=== PATIENT | male | born 1995 | race Caucasian/White ===

== ENCOUNTER 2021-09-12 12:49 | Emergency (ER) | payer MEDICAID, SELFPAY ==
--- NOTE | 2021-09-12 12:45 | RT.EKG_ITS ---
APPROVED REPORT Exam: Resting ECG Reason for Exam: chest pain Patient Location: E HR:71 bpm ECG Measurements Heart Rate 71 AXIS WI 175 P 59 QRSd 90 QRS 82 QT 349 T 41 QTc 379 Conclusion Sinus rhythm...normal P axis, V-rate 60- 99 ST elevation suggests acute pericarditis...ST >0.10mV, ant/lat/inf
[2021-09-12 12:56] VITALS: BP 134/81; PULSE 81; RESP 16; TEMP 36.9; O2SAT 97
--- NOTE | 2021-09-12 13:15 | DI.RAD_ITS ---
Exam(s) XR PORTABLE CHEST AP EXAM: XR PORTABLE CHEST AP CLINICAL HISTORY: PUI, Cough. TECHNIQUE: 2D digital imaging was performed. COMPARISON: CR ABD FLAT UPRIGHT PA CHEST from 06/04/2014 FINDINGS: Single AP portable view. Heart size is upper normal. The mediastinum is not widened. Lungs are clear. No infiltrates nor obvious pleural effusions. IMPRESSION: No acute pulmonary findings on this single AP portable view of the chest. DATA REPOSITORY: RADIATION DOSE DELIVERED: All CT scans at this facility use at least one of these dose optimization techniques: automated exposure control; mA and/or kV adjustment per patient size (includes targeted e xams where dose is matched to clinical indication); or iterative reconstruction.
--- NOTE | 2021-09-12 13:19 | ED.GENADUL_ITS ---
Discharge Plan Disposition Patient Disposition: HOME Condition: Improving Discharge Details Clinical Impression: Bronchitis Primary Care Provider: Unknown,Unknown ED Provider: Chris Duarte Home Meds and New Rx's Prescriptions: New amoxicillin-pot clavulanate 875-125 mg tablet 1 tab PO BID 10 Days Qty: 20 0RF ibuprofen 800 mg tablet 800 mg PO Q8H PRN (Reason: pain) Qty: 20 0RF Discharge Instructions Instructions: Acute Bronchitis (ED) Additional Instructions: Home to rest today. Small, frequent sips of fluids to maintain hydration. Ibuprofen 2-3 times per day will help attenuate aches and pains. Return if you develop shortness of breath or any other acute Take antibiotics as prescribed until finished. Our care managers will arrange a follow-up for you to establish care at the [place] [facility]. Stand Alone Forms: PENDING COVID-19 TESTING, Work Release Medical Decision Making This is an otherwise healthy 25-year-old male, occasional smoker, who lives in the town of [place]. He presents with 3 weeks of upper respiratory illness. Dry cough, production of sputum, postnasal drip. States he tried a nasal inhaler with minimal improvement. States he did have 1 at home negative COVID test but also had positive COVID exposures to his family. He arrives to the ER pleasant and alert with normal vital signs. As part of his screening triage an EKG was changed which does show diffuse ST segment elevation/WV depression, concerning for pericarditis. As such the differential diagnosis was broadened and the patient underwent viral testing, screening blood work, chest x-ray. Laboratories are reassuring; white count 8, hematocrit 43, platelets 229. Normal chemistries. CRP of 0.48 and troponin that is negative. Chest x-ray without infiltrate. No evidence of significant pericarditis by labs and no evidence of cardiomegaly on chest x-ray. Patient likely does have some component of bronchitis and sinusitis. He may need also end up having a positive COVID test. Discussed with him a trial of antibiotics. We will continue anti-inflammatories for consideration of mild pericardial irritation Lab Data Lab results reviewed: Yes I reviewed the patient's lab results. Labs: Laboratory Results - last 24 hr 09/12/21 09/12/21 09/12/21 13:30 13:30 16:18 WBC 8.59 RBC 4.84 Hgb 14.5 Hct 43.5 MCV 90 MCH 30.0 MCHC 33.3 RDW 12.3 Plt Count 229 MPV 10.2 Immature Gran % 0.3 Neutrophils % 69.1 Lymphocytes % 17.9 Monocytes % 10.2 Eosinophils % 2.0 Basophils % 0.5 Nucleated RBC % 0.0 Absolute Neutrophils 5.93 Absolute Lymphocytes 1.54 Absolute Monocytes 0.88 H Absolute Eosinophils 0.17 Absolute Basophils 0.04 Sodium 136 Potassium 4.1 Chloride 101 Carbon Dioxide 29.3 Anion Gap 5.7 BUN 13 Creatinine 0.9 Estimated GFR/1.73 m2 >= 60.00 Glucose 96 Calcium 8.6 Total Bilirubin 0.8 AST 23 ALT 37 Alkaline Phosphatase 64 Creatine Kinase 76 Troponin I < 50 Cancelled C-Reactive Protein 0.48 H Total Protein 7.4 Albumin 4.1 HPI General Mode of arrival: ambulatory . Date/Time Provider Initiated Documentation: 09/12/21 12:50 . Limitations to Documentation: no limitations . Information obtained by: patient . History of Present Illness 25 year old M presents to the emergency department with the chief complaint of 3 weeks of upper respiratory illness to the 1, Quality is described as dull, and is localized to the chest. Patient reports no radiation. Patient started experiencing this day(s) and it has been intermittent. improves with No relieving factors improve symptom(s), No exacerbating factors reported . Patient notes chest pain, cough, fever/chills and headaches. Patient did receive the following treatments prior to arrival, none Related Data Home Medications Medication Instructions Recorded Confirmed amoxicillin 875 mg-potassium 1 tab PO BID 10 Days #20 tab 09/12/21 clavulanate 125 mg tablet ibuprofen 800 mg tablet 800 mg PO Q8H PRN #20 tab 09/12/21 Previous Rx's Medication Instructions Recorded amoxicillin 875 mg-potassium 1 tab PO BID 10 Days #20 tab 09/12/21 clavulanate 125 mg tablet ibuprofen 800 mg tablet 800 mg PO Q8H PRN #20 tab 09/12/21 Allergies Allergy/AdvReac Type Severity Reaction Status Date / Time dial soap Allergy Mild Skin Rash Uncoded 09/12/21 13:02 General Stated Complaint: RespSymp EHSAN: 4 Review of Systems Narrative: 8 systems reviewed and otherwise negative PFSH All Active Problems (Updated 09/12/21 @ 14:12 by Chris Duarte MD) Bronchitis (Acute) Medical History Autosomal dominant polycystic kidney disease Social History Smoking/Tobacco Use Status: Current every day Tobacco Type: cigarettes Smoking risk assessment performed?: Yes Alcohol Intake: never Drug use: Daily Substance use type: marijuana Exam Narrative Exam Narrative: GEN: awake, alert, oriented 3. Pleasant, well groomed, interactive. HEAD: Normocephalic, atraumatic ENT: Mucous membranes moist, oropharynx unremarkable, External ear exam unrem arkable EYES: PERRL, EOMI NECK: Full ROM, no DAVID, no menigismus CHEST/RESP: Nontender, clear to auscultation bilateral, no wheeze/rhonchi/rales CARDIOVASCULAR: RRR, no murmur, rub rachael. 2+ Rad pulse bilateral ABDOMEN: Soft, nontender, no mass. +Bowel sounds EXT: Full ROM, no edema, no rash Neuro: Grossly normal neurologic exam, conversant, interactive. Psych: Speech fluent, thoughts congruent, affect normal Course Vital Signs Vital signs: Vital Signs Temperature 36.9 C 09/12/21 12:56 Pulse 81 09/12/21 12:56 Respiratory Rate 16 09/12/21 12:56 Blood Pressure 134/81 09/12/21 12:56 Pulse Oximetry 97 09/12/21 12:56 Temperature 36.9 C 09/12/21 12:56 Temperature Source Oral 09/12/21 12:56 Pulse 81 09/12/21 12:56 Respiratory Rate 16 09/12/21 12:56 Respiratory Effort 09/12/21 13:03 Blood Pressure 134/81 09/12/21 12:56 Blood Pressure Position Sitting 09/12/21 12:56 Pulse Oximetry 97 09/12/21 12:56 Oxygen Delivery Method Room Air 09/12/21 12:56 Oxygen Flow Rate 0 09/12/21 12:56 Pain Level 2 09/12/21 12:56
[2021-09-12 13:34] LABS: Abs Immature Grans 0.03 10^3/uL (0.0-0.06); Absolute Basophil Count 0.04 10^3/uL (0.0-0.2); Absolute Eosinophil Count 0.17 10^3/uL (0.0-0.7); Absolute Lymphocyte Count 1.54 10^3/uL (1.2-3.4); Absolute Monocyte Count 0.88 10^3/uL (0.1-0.8); Absolute Neutrophil Count 5.93 10^3/uL (1.2-6.7); Basophils % 0.5; HCT 43.5 % (40.0-50.0); HGB 14.5 g/dL (13.5-17.5); Immature Grans % 0.3; Lymphocytes % 17.9; MCHC 33.3 % (32.0-36.0); MCV 90 fL (80-95); MPV 10.2 fL (8.0-11.0); Monocytes % 10.2; Neutrophils % 69.1; Platelet Count 229 10^3/uL (130-400); RBC 4.84 10^6/uL (4.36-5.78); RDW 12.3 % (11.8-14.1); RDW-SD 40.9 fL; WBC 8.59 10^3/uL (4.4-10.8)
[2021-09-12] MEDS: Ketorolac 10 MG TAB PO (13:41)
[2021-09-12] MEDS: guaiFENesin/D-METHORPHAN HB 5 ML CUP 10 ML PO (13:41)
[2021-09-12 13:49] LABS: ALT 37 U/L (16-63); AST 23 U/L (15-37); Albumin 4.1 g/dL (3.4-5.0); Alkaline Phosphatase 64 U/L (46-116); Anion Gap 5.7 mmol/L (3-11); BUN 13 mg/dL (7-18); Bilirubin, Total 0.8 mg/dL (0.2-1.0); C-Reactive Protein 0.48 mg/dL (0.0-0.3); CO2 29.3 mmol/L (21.0-32.0); CREATININE 0.9 mg/dL (0.70-1.30); Calcium 8.6 mg/dL (8.5-10.1); Chloride 101 mmol/L (98-107); Creatine Kinase 76 U/L (39-308); Glucose 96 mg/dL (74-106); Potassium 4.1 mmol/L (3.5-5.1); Sodium 136 mmol/L (136-145); Total Protein 7.4 g/dL (6.4-8.2); Troponin I < 50 ng/L (<or=60)
--- NOTE | 2021-09-12 13:54 | NUR.NOTE ---
Referral given to Care Management to establish care, URI, needs PCP, preferably in [place], with routine follow up. Rosalina Mendoza
[2021-09-12 14:44] LABS: COVID-19 PCR Negative (Negative); Influenza A PCR Negative (Negative); Influenza B PCR Negative (Negative); RSV PCR Negative (Negative)
[2021-09-12 14:47] LABS: Source Nasopharynx
== END 2021-09-12 14:25 | disposition home or self-care (01) ==
PROVIDERS: Emergency Provider Emergency Medicine
DX: J20.9 Acute bronchitis, unspecified (principal); Z20.822 Contact with and (suspected) exposure to COVID-19
CPT/HCPCS: 36415; 80053; 82550; 87637; 93005; 99284; 71045; 84484; 85025; 86140; 93010

== ENCOUNTER 2022-03-27 09:09 | Emergency (ER) | payer MEDICAID, SELFPAY ==
[2022-03-27 09:27] VITALS: BP 143/94; PULSE 66; RESP 16; TEMP 36.6; O2SAT 97
[2022-03-27 09:59] VITALS: RESP 18
[2022-03-27 11:07] LABS: COVID-19 PCR Negative (Negative); Influenza A PCR Negative (Negative); Influenza B PCR Negative (Negative); RSV PCR Negative (Negative)
[2022-03-27 11:09] LABS: Source Nasopharynx
--- NOTE | 2022-03-27 14:50 | W.ED.GENAD ---
Discharge Plan Disposition Patient Disposition: Home Condition: Stable Discharge Details Clinical Impression: Viral upper respiratory infection [facility] Provider: Katherine Gale Home Meds and New Rx's Prescriptions: New mometasone 50 mcg/actuation spray,non-aerosol 2 spray intranasal DAILY Qty: 17 0RF Rx Instructions: administer into each nostril Continued ibuprofen 800 mg tablet 800 mg PO Q8H PRN (Reason: pain) Qty: 20 0RF Discharge Instructions Instructions: Upper Respiratory Infection (ED) Additional Instructions: you have a viral upper respiratory infection use mometasone as prescribed regular fluids i will call if your viral panel is positive return earlier with new or worsening complaints Discharge Data Discharge Date/Time-TO BE ENTERED AT DEPARTURE: 03/27/22 10:16 Medical Decision Making Patient appears well, he is negative for flu, COVID, and RSV I suspect he has upper respiratory infection Encouraged to refrain visiting his premature nanny until he is asymptomatic Do not see any evidence of bacterial etiology of patient's symptoms at this time Will give Nasacort for comfort Return precautions discussed and patient expressed understanding Medical Records Medical records reviewed: Yes I reviewed the patient's medical records. Sign Out No HPI General Date/Time Provider Initiated Documentation: 03/27/22 09:10. HPI Narrative: This 26-year-old male presents emergency department with productive cough, sore throat, tiredness for the past 3 weeks. He states he has been around close contacts were sick with similar symptoms. His largest concern is that he has a premature that is at [facility] and he does not want to expose the to infection. He denies any fevers at home. He is otherwise reportedly healthy. He has not taken any [id number] medications for patient. Related Data Home Medications Medication Instructions Recorded Confirmed ibuprofen 800 mg tablet 800 mg PO Q8H PRN pain #20 tabs 09/12/21 mometasone 50 mcg/actuation nasal 2 spray intranasal DAILY #17 grams 03/27/22 spray Previous Rx's Medication Instructions Recorded ibuprofen 800 mg tablet 800 mg PO Q8H PRN pain #20 tabs 09/12/21 mometasone 50 mcg/actuation nasal 2 spray intranasal DAILY #17 grams 03/27/22 spray Allergies Allergy/AdvReac Type Severity Reaction Status Date / Time dial soap Allergy Mild Skin Rash Uncoded 09/12/21 13:02 General Stated Complaint: GenMedical EHSAN: 4 Review of Systems All systems reviewed & are unremarkable except as noted in HPI and below PFSH All Active Problems (Updated 03/27/22 @ 09:54 by DEJAN Perez) Viral upper respiratory infection (Acute) Medical History Autosomal dominant polycystic kidney disease Social History Smoking/Tobacco Use Status: Current every day Tobacco Type: cigarettes Smoking risk assessment performed?: Yes Alcohol Intake: never Drug use: Daily Substance use type: marijuana Exam Const General: cooperative, comfortable and no acute distress Orientation: alert and oriented x3 HENMT Head: normal to inspection Mouth: oral mucosae normal Other: no maxillary tenderness Eyes Pupils: PERRL Resp Effort & Inspection: normal respiratory effort Auscultation: clear to auscultation bilaterally Cardio Rate: regular rate Rhythm: regular rhythm Skin General skin exam: no rashes or lesions noted Course Vital Signs Vital signs: Vital Signs Temperature 36.6 C 03/27/22 09:27 Pulse 66 03/27/22 09:27 Respiratory Rate 16 03/27/22 09:27 Blood Pressure 143/94 H 03/27/22 09:27 Pulse Oximetry 97 03/27/22 09:27 Temperature 36.6 C 03/27/22 09:27 Temperature Source Oral 03/27/22 09:27 Pulse 66 03/27/22 09:27 Respiratory Rate 18 03/27/22 09:59 Respiratory Effort Non-Labored 03/27/22 09:59 Respiratory Depth Normal 03/27/22 09:59 Respiratory Pattern Normal 03/27/22 09:59 Blood Pressure 143/94 H 03/27/22 09:27 Blood Pressure Position Sitting 03/27/22 09:27 Pulse Oximetry 97 03/27/22 09:27 Oxygen Delivery Method Room Air 03/27/22 09:27 Oxygen Flow Rate 0 03/27/22 09:27 Pain Level 5 03/27/22 09:27 Lab/Test Results Lab/Test Results: Laboratory Tests Range/Units 03/27/22 10:12 COVID-19 Source Nasopharynx SARS-CoV-2 (PCR) (Negative) Negative Influenza Type A (PCR) (Negative) Negative Influenza Type B (PCR) (Negative) Negative RSV (PCR) (Negative) Negative
== END 2022-03-27 10:16 | disposition home or self-care (01) ==
PROVIDERS: Emergency Provider Physician Assistant
DX: J06.9 Acute upper respiratory infection, unspecified (principal)
CPT/HCPCS: 87637; 99283

== ENCOUNTER 2022-12-21 08:49 | Emergency (ER) | payer MEDICAID, SELFPAY ==
[2022-12-21 09:05] VITALS: BP 127/88; PULSE 73; RESP 16; TEMP 36.8; O2SAT 99
[2022-12-21] MEDS: Normal Saline 1,000 ML 1000 ML IV ×2 (09:37→10:40)
[2022-12-21] MEDS: Ondansetron 4 MG/2 ML VIAL IVP (09:37)
--- NOTE | 2022-12-21 09:45 | W.ED.GENAD ---
Discharge Plan Disposition Patient Disposition: Home Discharge Details Clinical Impression: Alcohol intoxication in episodic drinker, Nausea & vomiting Primary Care Provider: Unknown,Unknown ED Provider: Darien Ashton Home Meds and New Rx's Prescriptions: Continued ibuprofen 800 mg tablet 800 mg PO Q8H PRN (Reason: pain) Qty: 20 0RF mometasone 50 mcg/actuation spray,non-aerosol 2 spray intranasal DAILY Qty: 17 0RF Rx Instructions: administer into each nostril Discharge Instructions Instructions: Alcohol Intoxication (ED), Acute Nausea and Vomiting (ED) Additional Instructions: Please stay well-hydrated and slowly increase your diet as tolerated. Your symptoms are secondary to the excessive amount of alcohol intake and it is advised that you follow safe alcohol consumption to minimize side effects. Follow-up with your primary care provider as needed for reassessment Referrals: Primary Care Provider [Outside] Discharge Data Discharge Date/Time-TO BE ENTERED AT DEPARTURE: 12/21/22 16:44 Medical Decision Making Patient presenting to the emergency department for chief complaint of nausea vomiting. Patient reports that last night he was drinking and drank excessively. Around 5 AM this morning he woke up and started having persistent vomiting. He reports that he has been having some hand cramping and spasms and overall does not feel well. Patient denies daily daily alcohol use. Physical exam shows a stable patient that is actively retching, no focal abdominal tenderness, no CVA tenderness, patient is not tachycardic or hypoxic. Given significant amount of vomiting reported by patient we will check patient's labs for any electrolyte abnormalities but I suspect this is more due to excessive alcohol intake. Will give patient a bag of IV fluids and Zofran pending results. Reviewed patient's labs and does have significant leukocytosis which I feel is from vomiting, CMP does show hypokalemia, low carbon dioxide high anion gap and high BUN. Bilirubin is slightly elevated at 1.1 AST is up at 50. Patient is still having some alcohol in his system with an alcohol level of 28. Urinalysis does show ketones and high specific gravity. Labs are otherwise nondiagnostic. Will give patient additional liter of fluids and p.o. potassium. Patient was able to tolerate some p.o. intake so we will discharge patient home. After discussion of diagnosis and plan of care patient has no further needs, questions, or concerns and states clear understanding to return to the emergency department for any worsening symptoms. This documentation was generated using [employer] dictation system, please disregard any oddities of phrase or misspellings. Lab Data Lab results reviewed: Yes I reviewed the patient's lab results. HPI General Mode of arrival: ambulatory. Date/Time Provider Initiated Documentation: 12/21/22 08:49. Limitations to Documentation: no limitations. Information obtained by: patient and RN notes reviewed. History of Present Illness 27 year old M presents to the emergency department with the chief complaint of Nausea vomiting, described as severe, Patient started experiencing this hour(s) (4) and it has been constant. No relieving factors improve symptom(s), Other factors that worsen symptoms (Excessive alcohol intake yesterday evening) . Patient did receive the following treatments prior to arrival, none Related Data Home Medications Medication Instructions Recorded Confirmed ibuprofen 800 mg tablet 800 mg PO Q8H PRN pain #20 tabs 09/12/21 mometasone 50 mcg/actuation nasal 2 spray intranasal DAILY #17 grams 03/27/22 spray Previous Rx's Medication Instructions Recorded ibuprofen 800 mg tablet 800 mg PO Q8H PRN pain #20 tabs 09/12/21 mometasone 50 mcg/actuation nasal 2 spray intranasal DAILY #17 grams 03/27/22 spray Allergies Allergy/AdvReac Type Severity Reaction Status Date / Time dial soap Allergy Mild Skin Rash Uncoded 09/12/21 13:02 General Stated Complaint: Nausea/Vomit/Diar EHSAN: 3 Review of Systems Constitutional Constitutional: Denies chills, Denies fever(s) and Reports poor appetite Cardiovascular Cardiovascular: Denies chest pain and Denies dyspnea Respiratory Respiratory: Denies cough and Denies dyspnea Gastrointestinal Gastrointestinal: Reports as per HPI, Denies abdominal pain, Denies melena, Denies change in bowel habits, Denies constipation, Denies diarrhea, Reports nausea and Reports vomiting Genitourinary Genitourinary: Denies hematuria, Denies difficulty urinating, Denies urinary hesitancy, Denies urinary incontinence and Denies urinary urgency Musculoskeletal Musculoskeletal: Reports muscle cramps Integumentary/Breasts Skin/Breast: Denies rash PFSH All Active Problems (Updated 12/21/22 @ 11:05 by Darien Ashton NP) Alcohol intoxication in episodic drinker (Acute) Nausea & vomiting (Acute) Autosomal dominant polycystic kidney disease (Acute 06/15/14) SEEN BY [facility] [place] IN 1 YEAR Medical History Autosomal dominant polycystic kidney disease Social History Smoking/Tobacco Use Status: Current every day Tobacco Type: cigarettes Smoking risk assessment performed?: Yes Alcohol Intake: never Drug use: Daily Substance use type: marijuana Do you feel safe at home: Yes Do you feel safe in your relationship?: Yes Exam Const General: cooperative Orientation: alert, awake and oriented x3 Resp Effort & Inspection: normal respiratory effort and able to speak in complete sentences Auscultation: clear to auscultation bilaterally Cardio Rate: regular rate Rhythm: regular rhythm Heart Sounds: S1 normal and S2 normal GI Palpation: soft, no hepatosplenomegaly, not firm, no guarding, no masses, no pulsatile masses, not rigid, no splenomegaly and nontender Auscultation: normal bowel sounds Back/Spine/Pelvis Back: no CVA tenderness Neuro General: patient alert, patient awake, patient oriented x3, gait normal and moves all extremities Course Vital Signs Vital signs: Vital Signs Temperature 36.8 C 12/21/22 09:05 Pulse 73 12/21/22 09:05 Respiratory Rate 16 12/21/22 09:05 Blood Pressure 127/88 12/21/22 09:05 Pulse Oximetry 99 12/21/22 09:05 Temperature 36.8 C 12/21/22 09:05 Temperature Source Oral 12/21/22 09:05 Pulse 73 12/21/22 09:05 Respiratory Rate 16 12/21/22 09:05 Respiratory Effort Normal, Non-Labored 12/21/22 09:11 Blood Pressure 127/88 12/21/22 09:05 Blood Pressure Position Sitting 12/21/22 09:05 Pulse Oximetry 99 12/21/22 09:05 Oxygen Delivery Method Room Air 12/21/22 09:05 Oxygen Flow Rate 0 12/21/22 09:05 PAWSS Have you Been Recently Intoxicated or Drunk Within the Last 30 days?: No Have you Ever Experienced Previous Episodes of Alcohol Withdrawal?: No Have you ever Experienced Withdrawal Seizures?: No Have you ever Experienced Delirium Tremens(DT)s?: No Have you ever undergone Alcohol Rehabilitation Treatment (i.e, inpt ot outpatient treatment programs)?: No Have you ever Experienced Blackouts?: No Have you ever Combined Alcohol with other Downers within the last 90 days?: No Have you ever Combined Alcohol with any other Substance of Abuse during the last 90 days?: No Positive Blood Alcohol level on Presentation? [PCS.BAL]: No Evidence of Increased Autonomic Activity (i.e. HR>120, tremor, sweating, agitation, nausea)?: No Result: 0
[2022-12-21 09:47] LABS: Abs Immature Grans 0.11 10^3/uL (0.0-0.06); Absolute Basophil Count 0.07 10^3/uL (0.0-0.2); Absolute Eosinophil Count 0.07 10^3/uL (0.0-0.7); Absolute Lymphocyte Count 1.94 10^3/uL (1.2-3.4); Absolute Monocyte Count 0.93 10^3/uL (0.1-0.8); Absolute Neutrophil Count 15.15 10^3/uL (1.2-6.7); Basophils % 0.4; Eosinophils % 0.4; HCT 42.4 % (40.0-50.0); Immature Grans % 0.6; Lymphocytes % 10.6; MCH 30.4 pg (27.0-33.0); MCHC 35.4 % (32.0-36.0); MCV 86 fL (80-95); MPV 10.3 fL (8.0-11.0); Monocytes % 5.1; Neutrophils % 82.9; Platelet Count 332 10^3/uL (130-400); RBC 4.94 10^6/uL (4.36-5.78); RDW 12.4 % (11.8-14.1); WBC 18.27 10^3/uL (4.4-10.8)
[2022-12-21 10:08] LABS: ALT 45 U/L (16-63); AST 50 U/L (15-37); Albumin 4.8 g/dL (3.4-5.0); Alkaline Phosphatase 60 U/L (46-116); BUN 21 mg/dL (7-18); Bilirubin, Total 1.1 mg/dL (0.2-1.0); Calcium 9.3 mg/dL (8.5-10.1); Chloride 104 mmol/L (98-107); ETHANOL BLOOD 28.7 mg/dL (<10); Estimated GFR 105.79 (mL/min/1.73m2); Glucose 75 mg/dL (74-106); Magnesium 1.9 mg/dL (1.8-2.4); Sodium 144 mmol/L (136-145); Total Protein 7.8 g/dL (6.4-8.2)
[2022-12-21 10:21] LABS: Bilirubin Negative (Negative); Blood Negative (Negative); Clarity Clear (Clear); Glucose Negative (Negative); Ketones 80 mg/dL (Negative); Leukocyte Esterase Negative (Negative); Nitrite Negative (Negative); Specific Gravity >= 1.030 (1.005-1.025); Urobilinogen 0.2 mg/dL (Up to 0.2); pH 5.5 (5-8)
[2022-12-21 10:29] LABS: Bacteria Negative HPF (Negative); C & S Indicated? No; Casts Negative LPF (Negative); Crystals Negative HPF (Negative); Epithelial Cells Negative HPF (Negative); Mucus Moderate (Negative); RBC Negative HPF (0-2); WBC 0-2 HPF (0-5)
[2022-12-21] MEDS: Potassium Chloride 20 MEQ TABCR 40 MEQ PO (10:40)
== END 2022-12-21 16:44 | disposition home or self-care (01) ==
PROVIDERS: Emergency Provider Nurse Practitioner Family
DX: F10.929 Alcohol use, unspecified with intoxication, unspecified (principal); R11.2 Nausea with vomiting, unspecified
CPT/HCPCS: 80053; 96361; 96374; 99284; 80320; 81003; 81015; 83735; 85025; J2405

== ENCOUNTER 2023-07-03 08:49 | Emergency (ER) | payer SELFPAY ==
[2023-07-03 08:54] VITALS: BP 139/92; PULSE 108; RESP 20; TEMP 37.6; O2SAT 97
--- NOTE | 2023-07-03 09:35 | ED.GENADUL_ITS ---
Discharge Plan Disposition Patient Disposition: Home Condition: Stable Discharge Details Chief Complaint: Sorethroat Clinical Impression: Influenza A Primary Care Provider: None,None ED Provider: Elaine Noble Home Meds and New Rx's Prescriptions: No Action No Known Home Meds Discharge Instructions Instructions: H1N1 Influenza (ED) Additional Instructions: Push fluids to stay well-hydrated drinking 6 to 8 glasses of water daily You can use [id number]-[id number] pain medication as directed for your symptoms such as acetaminophen for aches pains and fever Referrals: None,None [Primary Care Provider] - (Primary care provider if not improving in 5 to 7 days) HPI General Mode of arrival: ambulatory . Date/Time Provider Initiated Documentation: 07/03/23 08:51 . Limitations to Documentation: no limitations . Information obtained by: patient . HPI Narrative: Presents with a 1 day history of cough fever body aches. Denies any chest pain shortness of breath abdominal pain nausea or vomiting. Has been around sick contacts with similar symptoms. Related Data Home Medications Medication Instructions Recorded Confirmed Unknown [No Known Home Meds] 07/03/23 07/03/23 Allergies Allergy/AdvReac Type Severity Reaction Status Date / Time dial soap Allergy Mild Skin Rash Uncoded 07/03/23 10:35 General Stated Complaint: Sorethroat EHSAN: 3 Review of Systems All systems reviewed & are unremarkable except as noted in HPI and below Exam Const General: cooperative, comfortable and no acute distress Nutritional Appearance: thin Orientation: alert, awake and oriented x3 HENMT Head: normal to inspection, normocephalic and atraumatic Mouth: oral mucosae normal Throat: posterior oropharynx normal Chest Chest: normal inspection of the chest Resp Effort & Inspection: normal respiratory effort, able to speak in complete sentences and cough Quality of cough: dry Auscultation: clear to auscultation bilaterally and no wheezes Cardio Rate: tachycardic Rhythm: regular rhythm GI Inspection: normal to inspection Palpation: soft Skin General skin exam: no rashes or lesions noted Neuro General: patient alert, patient awake and patient oriented x3 Extrem General: normal to inspection, full ROM and no pedal edema Course Vital Signs Vital signs: Vital Signs Temperature 37.6 C H 07/03/23 08:54 Pulse 108 H 07/03/23 08:54 Respiratory Rate 20 07/03/23 08:54 Blood Pressure 139/92 H 07/03/23 08:54 Pulse Oximetry 97 07/03/23 08:54 Temperature 37.6 C H 07/03/23 08:54 Temperature Source Oral 07/03/23 08:54 Pulse 108 H 07/03/23 08:54 Respiratory Rate 20 07/03/23 08:54 Respiratory Effort Normal 07/03/23 09:06 Blood Pressure 139/92 H 07/03/23 08:54 Blood Pressure Position Sitting 07/03/23 08:54 Pulse Oximetry 97 07/03/23 08:54 Oxygen Delivery Method Room Air 07/03/23 08:54 Oxygen Flow Rate 0 07/03/23 08:54 Pain Level 6 07/03/23 08:54 Medical Decision Making Patient presents with symptoms most consistent with viral respiratory illness. Will provide ibuprofen 600 mg orally and obtain respiratory viral panel. Other than his pulse at 108 vitals are within normal range with a respiratory rate of 20 O2 sat of 97 on room air with a good blood pressure at 139/92. His physical exam is reassuring with clear breath sounds bilaterally no wheezing or rhonchi Chest x-ray was obtained that shows no infiltrates viral panel positive for influenza as suspected patient is stable for discharge to home with symptom management with [id number] medications Medical Records Medical records reviewed: Yes I reviewed the patient's medical records. Lab Data Lab results reviewed: Yes I reviewed the patient's lab results. Quality:SDOH Health Related Social Needs: No Data to Display PFSH All Active Problems (Updated 07/03/23 @ 10:38 by Elaine oNble NP) Influenza A (Acute) Autosomal dominant polycystic kidney disease (Acute 06/15/14) SEEN BY [facility] [place] [place] [facility] - IN 1 YEAR Medical History Autosomal dominant polycystic kidney disease Social History Smoking/Tobacco Use Status: Current every day Tobacco Type: cigarettes Smoking risk assessment performed?: Yes Alcohol Intake: never Drug use: Daily Substance use type: marijuana Do you feel safe at home: Yes Do you feel safe in your relationship?: Yes
[2023-07-03] MEDS: Ibuprofen 600 MG TAB PO (10:06)
[2023-07-03 10:07] LABS: COVID-19 PCR Negative (Negative); Influenza A PCR Positive (Negative); Influenza B PCR Negative (Negative); RSV PCR Negative (Negative)
--- NOTE | 2023-07-03 10:19 | DI.RAD_ITS ---
Exam(s) XR CHEST 2V PA LATERAL EXAM: XR CHEST 2V PA LATERAL CLINICAL HISTORY: cough, TECHNIQUE: 2D digital imaging was performed of the chest. Four images were obtained. PA and latera l views were obtained. COMPARISON: CR XR PORTABLE CHEST AP from 09/12/2021 FINDINGS: MEDIASTINUM: Normal. HEART: Normal. PULMONARY VASCULATURE: Normal. LUNGS: Clear. PLEURAL SPACE: No pleural effusion or pneumothorax. BONE:Within normal limits for the patient's age. OTHER FINDINGS:Normal. IMPRESSION: No acute pulmonary findings. DATA REPOSITORY: RADIATION DOSE DELIVERED:
[2023-07-03 10:29] LABS: Source Nasopharynx
[2023-07-03 10:48] VITALS: BP 124/98; BP 139/92; PULSE 108; PULSE 94; RESP 13; RESP 20; TEMP 37.6; O2SAT 97; O2SAT 98
== END 2023-07-03 10:50 | disposition home or self-care (01) ==
PROVIDERS: Emergency Provider Nurse Practitioner Acute Care
DX: J10.1 Influenza due to other identified influenza virus with other respiratory manifestations (principal); Q61.2 Polycystic kidney, adult type; F17.210 Nicotine dependence, cigarettes, uncomplicated; Z11.52 Encounter for screening for COVID-19
CPT/HCPCS: 87637; 99283; 71046

== ENCOUNTER 2024-05-28 17:03 | Emergency (ER) | payer SELFPAY ==
[2024-05-28 17:18] VITALS: BP 145/101; PULSE 96; RESP 20; TEMP 36.9; O2SAT 95
--- NOTE | 2024-05-28 17:27 | W.ED.GENAD ---
Discharge Plan Disposition Patient Disposition: Home Condition: Stable Discharge Details Clinical Impression: Pneumonia Primary Care Provider: Unknown,Unknown ED Provider: Sohail Byrnes Home Meds and New Rx's Prescriptions: New amoxicillin-pot clavulanate 875-125 mg tablet 1 tab PO BID 5 Days Qty: 9 0RF azithromycin 250 mg tablet 250 mg PO DAILY 4 Days Qty: 4 0RF Rx Instructions: start on day 2 of therapy Discharge Instructions Instructions: Azithromycin (Systemic), Amoxicillin and Clavulanate, Pneumonia, Adult ED Additional Instructions: You were seen in the emergency department for your right lower lobe pneumonia. I started you on antibiotics this evening in the ER and sent both the antibiotics to [facility] in [place] start both of them outpatient tomorrow. Please use therapeutic dosing of Tylenol (acetamenophen) & Advil (ibuprofen) in an alternating fashion as follows: Take 1000mg of Tylenol every 6 hours without missing doses- that is 4 times per day. [place] in between the Tylenol dosings, take 400-600mg of Advil also on a 6 hour schedule, that is also 4 times per day. The daily maximum dosing of Tylenol is 4000mg, and the daily maximum dosing of Advil is 2400mg. This is safe to do for weeks. Please note that some common cold medications & prescription pain medications may contain acetamenophen and you need to read OTC drug labels and factor that in to maximum daily dosings. Take an [id number] cold medicine like Mucinex to help expel mucus from the lungs. Please return to the emergency department for failure to improve on antibiotics especially with respiratory distress and chest pain. Discharge Data Discharge Date/Time-TO BE ENTERED AT DEPARTURE: 05/28/24 18:47 HPI General Date/Time Provider Initiated Documentation: 05/28/24 17:27. HPI Narrative: 28 year-old male presents to ED today by POV/ambulating with a chief complaint of cough for 3 weeks, productive cough with yellow phlegm. Quality described as fatigued, denies high fever, denies profound shortness of breath, no radiation to chest pain, nausea or vomiting, inability to tolerate p.o. intake, profound lethargy, bowel or urinary changes, dizziness. Severity is described as moderate. Palliating factors include OTC cold medicines with mild relief. Provoking factors include nothing specific. Events leading up to the incident/Associated Symptoms: Patient has not tested for Covid or the flu, his girlfriend is being treated for pneumonia. Patient [ ] anticoagulated. Related Data Home Medications ?Medication ?Instructions ?Recorded ?Confirmed amoxicillin 875 mg-potassium 1 tab PO BID pneumonia 5 days #9 05/28/24 clavulanate 125 mg tablet tabs azithromycin 250 mg tablet 250 mg PO DAILY 4 days #4 tabs 05/28/24 Previous Rx's ?Medication ?Instructions ?Recorded amoxicillin 875 mg-potassium 1 tab PO BID pneumonia 5 days #9 05/28/24 clavulanate 125 mg tablet tabs azithromycin 250 mg tablet 250 mg PO DAILY 4 days #4 tabs 05/28/24 Allergies Allergy/AdvReac Type Severity Reaction Status Date / Time dial soap Allergy Mild Skin Rash Uncoded 05/28/24 17:18 General Stated Complaint: SOB EHSAN: 3 Review of Systems All systems reviewed & are unremarkable except as noted in HPI and below Exam Narrative Exam Narrative: GENERAL APPEARANCE: Well-nourished, non-toxic, awake and alert, atraumatic, no acute distress. SKIN: Warm, pink, dry, intact, without rashes/lesions/ulcerations. HEAD: Normocephalic, atraumatic, normal hair distribution for gender/age. EYES: Normal conjunctiva, no exudates on lids/lashes. ENT: Nares patent, no circumoral cyanosis, no facial swelling NECK: Supple, trachea midline, painless cervical ROM. LUNGS/CHEST: Lungs CTA bilaterally- no rhonchi/rales/wheezes diffusely, non-labored respirations, normal A/P diameter, symmetrical expansion, no chest wall deformity HEART (CV/PV): Regular rate and rhythm without murmur, no peripheral edema, no JVD. ABDOMEN: Soft, non-distended, no guarding. MSK: Normal ROM, no swelling/deformity to bilateral UEs or LEs, moving all extremities without weakness, no cyanosis, spine midline without tenderness, normal curvature. NEURO: Mental Status AAOx4 - alert to person, place, time, events No facial droop, no forehead involvement. Motor: No focal weakness - strength 5/5 in bilateral UEs and LEs, proximal and distal, symmetric. Sensory: sensation intact to light touch globally. Gait normal: patient ambulated without ataxia into ED room. PSYCH: euthymic, cooperative, pleasant, appropriate speech Course Vital Signs Vital signs: Vital Signs Temperature 36.9 C 05/28/24 17:18 Pulse 96 H 05/28/24 17:18 Respiratory Rate 20 05/28/24 17:18 Blood Pressure 145/101 H 05/28/24 17:18 Pulse Oximetry 95 05/28/24 17:18 Temperature 36.9 C 05/28/24 17:18 Temperature Source Temporal Artery Scan 05/28/24 17:18 Pulse 96 H 05/28/24 17:18 Respiratory Rate 20 05/28/24 17:18 Blood Pressure 145/101 H 05/28/24 17:18 Blood Pressure Position Sitting 05/28/24 17:18 Pulse Oximetry 95 05/28/24 17:18 Oxygen Delivery Method Room Air 05/28/24 17:18 Oxygen Flow Rate 0 05/28/24 17:18 Pain Level 0 05/28/24 17:18 Medical Decision Making This dictation utilizes [id number]-ybla dictation software and may contain unedited grammatical errors. 28 year-old male presents to ED today by POV/ambulating with a chief complaint of cough for 3 weeks, productive cough with yellow phlegm. Quality described as fatigued, denies high fever, denies profound shortness of breath, no radiation to chest pain, nausea or vomiting, inability to tolerate p.o. intake, profound lethargy, bowel or urinary changes, dizziness. Severity is described as moderate. Palliating factors include OTC cold medicines with mild relief. Provoking factors include nothing specific. Events leading up to the incident/Associated Symptoms: Patient has not tested for Covid or the flu, his girlfriend is being treated for pneumonia. Patients' medical history: Noncontributory. Family and social history: Occasional tobacco smoker. Pertinent exam findings / vital signs include lungs CTA, nontoxic vitals, benign abdomen, afebrile. Differential / pathologies of concern include URI, pneumonia, bronchitis, unlikely PE. Diagnostic studies of: -COVID/flu/RSV PCR, XR chest. -PCR swab negative -XR Chest shows R lower lobe patchy infiltrates Interventions of: -Rx for Augmentin/Azithro. ED Course/Assessment/Plan: 28-year-old male presents with 3 weeks of upper respiratory infection, his girlfriend in close contact is being treated for pneumonia, his PCR swab was negative and x-ray shows a right lower lobe pneumonia. He is not hypoxic and otherwise has nontoxic vitals, I find it reasonable to start dual antibiotic treatment with Augmentin and azithromycin as he does have some comorbidities of smoking. Stressed strict return criteria for acute worsening despite treatment especially with respiratory distress and chest pain. Findings not consistent with hypoxic respiratory failure, sepsis. Disposition of Pneumonia. Patient verbalized understanding of the plan and return to ED criteria and engaged in shared decision making. Medical Records Medical records reviewed: Yes I reviewed the patient's medical records. Imaging Data Radiologic Study: Attestation: I personally reviewed and interpreted this imaging study as follows: Imaging: X-Ray Radiologist's impression: EXAM: XR CHEST 2V PA LATERAL CLINICAL HISTORY: cough TECHNIQUE: 2D digital imaging was performed. Two views. COMPARISON: CR XR CHEST 2V PA LATERAL from 07/03/2023 FINDINGS: HEART: Normal size. Aorta: Not dilated. PULMONARY VASCULATURE: Normal. MEDIASTINUM: Unremarkable. LUNGS: Patchy increased densities noted in the right lower lung. No focal consolidation. The remainder of the lung smith are clear. PLEURAL SPACE: No pleural effusion or pneumothorax. BONE:Unremarkable for age. SOFT TISSUES: Unremarkable. IMPRESSION: Patchy right lower lobe infiltrates. Lab Data Lab results reviewed: Yes I reviewed the patient's lab results. Labs: Laboratory Tests Range/Units 05/28/24 17:22 COVID-19 Source Nasopharynx SARS-CoV-2 (PCR) (Negative) Negative Influenza Type A (PCR) (Negative) Negative Influenza Type B (PCR) (Negative) Negative RSV (PCR) (Negative) Negative Quality:SDOH Health Related Social Needs: No Data to Display PFSH All Active Problems (Updated 05/28/24 @ 18:33 by DEJAN Noel) Pneumonia (Acute) Autosomal dominant polycystic kidney disease (Acute 06/15/14) SEEN BY [facility] 2-2014 - FU IN 1 YEAR Medical History Autosomal dominant polycystic kidney disease Social History Smoking/Tobacco Use Status: Current every day Tobacco Type: cigarettes Years smoked: 18 Smoking risk assessment performed?: Yes Alcohol Intake: never Drug use: Daily Substance use type: marijuana Do you feel safe at home: Yes Do you feel safe in your relationship?: Yes
--- NOTE | 2024-05-28 17:30 | DI.RAD_ITS ---
Exam(s) XR CHEST 2V PA LATERAL EXAM: XR CHEST 2V PA LATERAL CLINICAL HISTORY: cough TECHNIQUE: 2D digital imaging was performed. Two views. COMPARISON: CR XR CHEST 2V PA LATERAL from 07/03/2023 FINDINGS: HEART: Normal size. Aorta: Not dilated. PULMONARY VASCULATURE: Normal. MEDIASTINUM: Unremarkable. LUNGS: Patchy increased densities noted in the right lower lung. No focal consolidation. The remain beto of the lung smith are clear. PLEURAL SPACE: No pleural effusion or pneumothorax. BONE:Unremarkable for age. SOFT TISSUES: Unremarkable. IMPRESSION: Patchy right lower lobe infiltrates. DATA REPOSITORY: RADIATION DOSE DELIVERED:
[2024-05-28 18:24] LABS: COVID-19 PCR Negative (Negative); Influenza A PCR Negative (Negative); Influenza B PCR Negative (Negative); RSV PCR Negative (Negative)
[2024-05-28 18:29] LABS: Source Nasopharynx
[2024-05-28] MEDS: Azithromycin 250 MG TAB 500 MG PO (18:43)
[2024-05-28] MEDS: Amoxicillin 875/Clav. 125 TAB PO (18:43)
--- OUTSIDE RECORDS SUMMARY | 2024-05-28 18:53 | XMS_ITS | Encounter Summary ---
[facility] [place] [place] [address] Care Team Providers Care Billet Heater Operator Name Role Phone Janice Banegas APRN Primary Care Provider + Reason for Visit * Reason Comments Eye Pain Encounter Details Date Type Department Care Team (Late st Contact Info) Description 01/26/2024 6:35 AM EDT - 01/26/2024 7:53 AM EDT Emergency [place] [address] [address] [facility] [place] [address] UV keratitis, bilateral Discharge Disposition: Home Social History Tobacco Use Types Packs/Day Years Used Date Smoking Tobacco: Some Days Comments:Marijuana Sex and Gender Information Value Date Recorded Sex Assigned at Not on file Gender Identity Not on file Sexual Orientation Not on file documented as of this encounter Last Filed Vital Signs Vital Sign Reading Time Taken Comments Blood Pressure 130/70 01/26/2024 7:52 AM EDT Pulse 70 01/26/2024 7:52 AM EDT Temperature 37 ??C (98.6 ??F) 01/26/2024 7:52 AM EDT Respiratory Rate 16 01/26/2024 7:52 AM EDT Oxygen Saturation 100% 01/26/2024 7:52 AM EDT Inhaled Oxygen Concentration - - Weight 70.3 kg (155 lb) 01/26/2024 6:44 AM EDT Height 180.3 cm (5' 11) 01/26/2024 6:44 AM EDT Body Mass Index 21.62 01/26/2024 6:44 AM EDT documented in this encounter Discharge Instructions * Discharge Instructions* Cedric Hanson MD - 01/26/2024 7:44 AM EDT You are seen emerged Castro for UV keratitis. We have given you proparacaine drops which are numbing medication. You can apply 2 drops in each eye every 6 hours. You should only do this for 1 day. If you continues the medication after this can cause further damage to your eyes. We recommend artificial tears as needed for any dry sensations. And sunglasses when you are around any bright lights and you can consider wearing them inside as well to help with your light sensitivity. We recommend follow-up with your primary care doctor in the next several days to reevaluate your symptoms.. Made new blurry vision, loss of vision, or other worsening symptoms please return to the ER. documented in this encounter ED Notes * Crystal Graves DO - 01/26/2024 7:25 AM EDT ED Attending Brief Note The patient was seen in conjunction with the resident physician. I have independently performed thekey portions of the history and physical exam. I have reviewed the diagnostic studies including labs, imaging studies and EKGs. I have discussed the details of the case with the resident. Brief Summary: 28 y.o. 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 Mom and baby are doing well, baby though is 3 pounds 7 ounces. This morning noted bilateral eye pain, reports sensitivity to bright light. Does not have foreign body sensation, has not taken any Tylenol or ibuprofen. Has no history of prior. No fevers chills cough or cold symptoms. Physical exam is notable for no acute distress, erythematous sclera bilaterally with watering, no purulent discharge, no evidence of visible foreign bodies with extraocular motion exam. Fluorescein exam with scattered uptake, with a less than 1 cm patch in the left sclera inferior to the pupil. Pupils are equal round reactive. I considered foreign body versus UV keratitis versus corneal abrasion. Symptom treatment with Tylenol, Motrin and proparacaine drops started in the emergency department. Exam and hx consistent with UV keratitis. Discussed proparacaine x 24 hours for pain control, Tylenol and ibuprofen as well. Return precautions advised Did this case involve critical care? No Crystal Graves DO 01/26/24 1434 * Cedric Hanson MD - 01/26/2024 7:06 AM EDT ED RESIDENT NOTE Patient: Bob Heath Age (): 28 y.o. (1995) SUBJECTIVE HPI: Bob Heath is a 28 y.o. male who presented to the ED for bilateral eye pain and tearing. 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 And then this morning developed bilateral eye pain, redness. States the pain started this morning, is denying any blurry vision or vision loss. Denying any painwith eye movement. States the eyes feel dry and gritty. Is been using artificial tears with minimalimprovement. Of note patient has a history of's abdominal polycystic kidney disease but no prior history of eye concerns. History obtained from patient. ROS as per HPI. Past Medical and Surgical Histories, Social History, Medications, Allergies were reviewed in the chart. Pt was seen under the supervision of an attending physician. OBJECTIVE Vital Signs: ED Triage Vitals [01/26/24 0644] BP: (!) 141/99 Heart Rate: 79 Resp: 18 Temp: 37 ??C (98.6 ??F) Temp src: Oral SpO2: 97 % O2 Device: RA O2 Flow Rate (L/min): n/a Physical Exam Constitutional: General: He is not in acute distress. Appearance: Normal appearance. He is not ill-appearing. HENT: Head: Normocephalic and atraumatic. Nose: Nose normal. Eyes: General: Lids are normal. Vision grossly intact. Extraocular Movements: Extraocular movements intact. Right eye: Normal extraocular motion. Left eye: Normal extraocular motion. Conjunctiva/sclera: Right eye: Right conjunctiva is injected. No exudate or hemorrhage. Left eye: Left conjunctiva is injected. No exudate or hemorrhage. Pupils: Pupils are equal, round, and reactive to light. Comments: Fluorescein exam: Scattered uptake in the right eye with no focal uptake. Left eye approximately 1 mm by half millimeter area of focal uptake just inferior to limbus. Neurological: Mental Status: He is alert. Labs Reviewed - No data to display I have reviewed imaging, which is significant for: No orders to display ASSESSMENT & PLAN ED Course MDM: Patient's presentation is most consistent with a UV keratitis given his exposure to right UV light and delayed symptoms. Eye exam without evidence of corneal abrasion or retained foreign body. Did show patchy uptake of fluorescein as well as a focal uptake in the left eye. Thin-walled and jagged edges consistent with a UV keratitis. Post exam without evidence of ulcer. Patient has no changes in vision no blurry vision no pain witheye movements. Overall low concern for conjunctivitis, bacterial infection, or keratitis. Given lack of vision changes overall low concern for optic nerve injury or central nervous cause of patient'ssymptoms. Will plan for symptom control for UV keratitis with artificial tears, limited 24-hour course of proparacaine drops. Counseling patient on use no more than 4 times in a day and no more than 1 days duration due to risk of corneal damage with ongoing use. Recommend follow-up as needed with primary care if symptoms or not improving over the neck several days. Discussed return precautions. Social Determinants of Health affecting care: N/A The visit findings, diagnosis, and care plan were discussed with the patient. The diagnosis and care plans discussions were outlined in the discharge instructions. The patient expressed understanding of the details of the visit, the return precautions and that he should returnto the ER at any time for worsening symptoms, new symptoms, or other concerns. he agrees with the follow- up plan. Cedric Hanson M.D. Emergency Medicine Resident, PGY-2 01/26/24 7:06 AM Cedric Hanson MD Resident 01/26/24 9144 Associated attestation - rCystal Graves DO - 01/26/2024 10:48 AM EDT ED ATTENDING ATTESTATION NOTE The patient was seen in conjunction with the resident physician. I have independently performed thekey portions of the history and physical exam. I have reviewed the nursing notes, vital signs, and all diagnostic studies personally including labs, imaging studies and EKGs. I have discussed the details of the case with the resident and agree with the assessment and plan as described in the resident note unless noted otherwise. documented in this encounter Miscellaneous Notes * ED Triage - Mohini Triplett RN - 01/26/2024 6:45 AM EDT Patient endorses bilateral eye pain that started this am. States he was welding yesterday without eye protection. Reports burning, both eyes are tearing up, redness observed, and sensitivity to light. Pt denies blurry vision, or getting any foreign body in his eyes. documented in this encounter Plan of Treatment Not on file documented as of this encounter Visit Diagnoses Diagnosis UV keratitis, bilateral documented in this encounter Administered Medications Inactive Administered Medications - up to 3 most recent administrations Medication Order MAR Action Action Date Dose Rate Site acetaminophen (Tylenol) tablet 975 mg 975 mg (rounded from 1,000 mg), Oral, ONCE, 1 dose, On 01/26/24 at 0710, - Maximum dose of acetaminophen is 4,000 mg from all sources in 24 hours. - Unless otherwise specified, when ordered PRN for pain, acetaminophen should be given first if other PRN pain medications are ordered., STAT Given 01/26/2024 7:08 AM EDT 975 mg ibuprofen (Advil) tablet 600 mg 600 mg, Oral, ONCE, 1 dose, On 01/26/24 at 0715, Administer orally with milk or food to minimize GI irritation, STAT Given 01/26/2024 7:09 AM EDT 600 mg proparacaine (Alcaine) 0.5 % ophthalmic solution 1 drop 1 drop, Both Eyes, ONCE, 1 dose, On 01/26/24 at 0710, For physician Use, STAT Given 01/26/2024 7:10 AM EDT 1 drop documented in this encounter Active and Recently Administered Medications Times are shown in EDT. Scheduled Medication Order 01/24/2024 01/25/2024 01/26/2024 acetaminophen (Tylenol) tablet 975 mg (COMPLETED) 975 mg (rounded from 1,000 mg), Oral, ONCE, 1 dose, On 01/26/24 at 0710, - Maximum dose of acetaminophen is 4,000 mg from all sources in 24 hours. - Unless otherwise specified, when ordered PRN for pain, acetaminophen should be given first if other PRN pain medications are ordered., STAT 0708 (Given - Provid er: Sunil Chavarria RN) ibuprofen (Advil) tablet 600 mg (COMPLETED) 600 mg, Oral, ONCE, 1 dose, On 01/26/24 at 0715, Administer orally with milk or food to minimize GI irritation, STAT 0709 (Given - Provid er: Sunil Chavarria RN) proparacaine (Alcaine) 0.5 % ophthalmic solution 1 drop (COMPLETED) 1 drop, Both Eyes, ONCE, 1 dose, On 01/26/24 at 0710, For physician Use, STAT 0710 (Given - Provid er: Sunil Chavarria RN) documented in this encounter Care Teams Billet Heater Operator Relationship Specialty Start Date End Date Janice Banegas APRN PCP - General 06/30/14 documented as of this encounter
--- OUTSIDE RECORDS SUMMARY | 2024-05-28 18:53 | XMS_ITS | Encounter Summary ---
Author Organization [facility] [place] [address] Care Team Providers Care Pump Erector Helper Name Role Phone Janice Banegas APRN Primary Care Provider + Encounter Details Date Type Department Care Team (Late st Contact Info) Description 09/01/2015 Telephone Nephrology [place] [id number] Wendy Oconnor Social History Tobacco Use Types Packs/Day Years Used Date Smoking Tobacco: Some Days Comments:Marijuana Sex and Gender Information Value Date Recorded Sex Assigned at Not on file Gender Identity Not on file Sexual Orientation Not on file documented as of this encounter Miscellaneous Notes * Telephone Encounter - Wendy Kelly - 09/01/2015 11:08 AM EDT Left message with patient to call back and make follow up appointment . documented in this encounter Plan of Treatment Not on file documented as of this encounter Visit Diagnoses Not on filedocumented in this encounter Care Teams Pump Erector Helper Relationship Specialty Start Date End Date Janice Banegas APRN PCP - General 06/30/14 documented as of this encounter
--- OUTSIDE RECORDS SUMMARY | 2024-05-28 18:53 | XMS_ITS | Clinical Summary ---
[facility] [place] [address] Care Team Providers Care Director Of Ancillary Services Name Role Phone Janice Banegas APRN Primary Care Provider + Allergies Active Allergy Reactions Criticality Noted Date Comments Soap 07/02/2014 DIAL SOAP Medications No known medications Active Problems No known active problems Family History Medical History Relation Comments Kidney Disease Father Relation Status Comments Father Social History Tobacco Use Types Packs/Day Years Used Date Smoking Tobacco: Some Days Comments:Marijuana Sex and Gender Information Value Date Recorded Sex Assigned at Not on file Gender Identity Not on file Sexual Orientation Not on file Last Filed Vital Signs Vital Sign Reading [...] Mass Index 21.62 01/26/2024 6:44 AM EDT Plan of Treatment Health Maintenance Due Date Last Done Comments HIV screen 12/12/2013 Hepatitis C Screening 12/12/2013 Lipid Screening 12/12/2013 Hepatitis B vaccine (0-59 yrs) (1) 12/12/2014 Pneumococcal Vaccine: At-Risk 5-49yrs (1 of 2 - PCV) 0 12/12/2014 Tetanus/Diphtheria/Pertussis Vaccines (1 - Tdap) 12/12 Covid-19 Vaccine (1 - 2023- season) 2024 Influenza (Flu) vaccine (1 o f 1 - Influenza standard series) 01/05/2024 Care Teams Director Of Ancillary Services Relationship Specialty Start Date End Date Janice Banegas APRN PCP - General 06/30/14
--- OUTSIDE RECORDS SUMMARY | 2024-05-28 18:53 | XMS_ITS | Encounter Summary ---
Author Organization [facility] [place] [address] Care Team Providers Care Message Clerk Name Role Phone Janice Banegas APRN Primary Care Provider + Encounter Details Date Type Department Care Team (Latest Contact Info) Description 01/26/2024 Travel Social History Tobacco Use Types Packs/Day Years Used Date Smoking Tobacco: Some Days Comments:Marijuana Sex and Gender Information Value Date Recorded Sex Assigned at Not on file Gender Identity Not on file Sexual Orientation Not on file documented as of this encounter Plan of Treatment Not on file documented as of this encounter Visit Diagnoses Not on filedocumented in this encounter Care Teams Message Clerk Relationship Specialty Start Date End Date Janice Banegas APRN PCP - General 06/30/14 documented as of this encounter
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
--- OUTSIDE RECORDS SUMMARY | 2024-05-28 18:53 | XMS_ITS | Encounter Summary ---
[facility] [place] [address] Care Team Providers Care Personal Injury Litigation Paralegal Name Role Phone Janice Banegas APRN Primary Care Provider + Encounter Details Date Type Department Care Team (Late st Contact Info) Description 08/24/2015 Telephone Nephrology [place] [phone] Wendy Oconnor Social History Tobacco Use Types Packs/Day Years Used Date Smoking Tobacco: Some Days Comments:Marijuana Sex and Gender Information Value Date Recorded Sex Assigned at Not on file Gender Identity Not on file Sexual Orientation Not on file documented as of this encounter Miscellaneous Notes * Telephone Encounter - Wendy Kelly - 08/24/2015 2:28 PM EDT Patient did not answer, no answering machine. documented in this encounter Plan of Treatment Not on file documented as of this encounter Visit Diagnoses Not on filedocumented in this encounter Care Teams Personal Injury Litigation Paralegal Relationship Specialty Start Date End Date Janice Banegas APRN PCP - General 06/30/14 documented as of this encounter
--- OUTSIDE RECORDS SUMMARY | 2024-05-28 18:53 | XMS_ITS | Encounter Summary ---
[facility] [place] [address] Care Team Providers Care Dye Reel Operator Name Role Phone Janice Banegas APRN Primary Care Provider + Encounter Details Date Type Department Care Team (Late st Contact Info) Description 07/07/2015 Telephone [place] [phone] Wendy Oconnor Social History Tobacco Use Types Packs/Day Years Used Date Smoking Tobacco: Some Days Comments:Marijuana Sex and Gender Information Value Date Recorded Sex Assigned at Not on file Gender Identity Not on file Sexual Orientation Not on file documented as of this encounter Miscellaneous Notes * Telephone Encounter - Wendy Kelly - 07/07/2015 9:53 AM EST Left message with mom, She said she would call back with PT's personal call. Waiting for call back.Will try again at later date if no call back is received. documented in this encounter Plan of Treatment Not on file documented as of this encounter Visit Diagnoses Not on filedocumented in this encounter Care Teams Dye Reel Operator Relationship Specialty Start Date End Date Janice Banegas APRN PCP - General 06/30/14 documented as of this encounter
--- OUTSIDE RECORDS SUMMARY | 2024-05-28 18:54 | XMS_ITS | Encounter Summary ---
[facility] [place] [address] Care Team Providers Care Casting Operator Helper Name Role Phone Janice Banegas APRN Primary Care Provider + Encounter Details Date Type Department Care Team (Late st Contact Info) Description 01/03/2008 [place] [phone] Cassandra Marin APRN Social History Tobacco Use Types Packs/Day Years Used Date Smoking Tobacco: Never Assessed Sex and Gender Information Value Date Recorded Sex Assigned at Not on file Gender Identity Not on file Sexual Orientation Not on file documented as of this encounter Plan of Treatment Not on file documented as of this encounter Procedures Procedure Name Priority Date/Time Associated Diagnosis Comments FILM LIBRARY STORAGE ONLY CT ABDOMEN AND PELVIS Routine 01/03/2008 10:00 AM EDT documented in this encounter Results * Film Library- Storage only CT abdomen & pelvis (01/03/2008 10:00 AM EDT) Anatomical Region Laterality Modality Abdomen, Pelvis Other 01/03/2008 10:0 0 AM EDT Narrative 07/05/2014 9:45 AM EST This is a Non-reportable exam Procedure Note RHETT, UNSIGNED REPORT - 07/05/2014 This is a Non-reportable exam Cassandra Marin APRN IMG FILM LIBRARY O RDERABLES documented in this encounter Visit Diagnoses Not on filedocumented in this encounter Care Teams Casting Operator Helper Relationship Specialty Start Date End Date Janice Banegas APRN PCP - General 06/30/14 documented as of this encounter
--- OUTSIDE RECORDS SUMMARY | 2024-05-28 18:54 | XMS_ITS | Encounter Summary ---
[facility] [place] [address] Care Team Providers Care Mowing Machine Operator Name Role Phone Janice Banegas APRN Primary Care Provider + Encounter Details Date Type Department Care Team (Late st Contact Info) Description 01/14/2008 [place] [phone] Cassandra Marin APRN Social History Tobacco Use [...] Associated Diagnosis Comments FILM LIBRARY STORAGE ONLY ULTRASOUND STUDY Routine 01/14/2008 10:00 AM EDT documented in this encounter Results * Film Library- Storage only Ultrasound Study (01/14/2008 10:00 AM EDT) Anatomical Region Laterality Modality Other 01/14/2008 10:0 0 AM EDT Narrative 07/05/2014 9:49 AM EST This is a Non-reportable exam Procedure Note RHETT, UNSIGNED REPORT - 07/05/2014 This is a Non-reportable exam Cassandra Marin APRN IMG FILM LIBRARY O RDERABLES documented in this encounter Visit Diagnoses Not on filedocumented in this encounter Care Teams Mowing Machine Operator Relationship Specialty Start Date End Date Janice Banegas APRN PCP - General 06/30/14 documented as of this encounter
--- OUTSIDE RECORDS SUMMARY | 2024-05-28 18:54 | XMS_ITS | Encounter Summary ---
Author [facility] [place] [address] Care Team Providers Care Product Support Engineer Name Role Phone Janice Banegas APRN Primary Care Provider + Encounter Details Date Type Department Care Team (Late st Contact Info) Description 01/19/2008 [place] [phone] Cassandra Marin APRN Social History Tobacco Use [...] FILM LIBRARY STORAGE ONLY ULTRASOUND STUDY Routine 01/19/2008 10:10 AM EDT documented in this encounter Results * Film Library- Storage only Ultrasound Study (01/19/2008 10:10 AM EDT) Anatomical Region Laterality Modality Other 01/19/2008 10:1 0 AM EDT Narrative 07/05/2014 9:53 AM EST This is a Non-reportable exam Procedure Note RHETT, UNSIGNED REPORT - 07/05/2014 This is a Non-reportable exam Cassandra Marin APRN IMG FILM LIBRARY O RDERABLES documented in this encounter Visit Diagnoses Not on filedocumented in this encounter Care Teams Product Support Engineer Relationship Specialty Start Date End Date Janice Banegas APRN PCP - General 06/30/14 documented as of this encounter
== END 2024-05-28 18:47 | disposition home or self-care (01) ==
PROVIDERS: Emergency Provider Physician Assistant
DX: J18.9 Pneumonia, unspecified organism (principal); F17.210 Nicotine dependence, cigarettes, uncomplicated
CPT/HCPCS: 87637; 99284; 71046

== ENCOUNTER 2024-06-04 03:17 | Emergency (ER) | payer SELFPAY ==
[2024-06-04] VITALS (19 sets, daily range): BP systolic 110–157; BP diastolic 69–87; PULSE 69–88; RESP 14–26; TEMP 37.7; O2SAT 92–100
--- NOTE | 2024-06-04 03:30 | RT.EKG_ITS ---
APPROVED REPORT Exam: Resting ECG Reason for Exam: Abd pain Patient Location: E HR:70 bpm ECG Measurements Heart Rate 70 AXIS MT 173 P 52 QRSd 93 QRS 83 QT 358 T 45 QTc 387 Conclusion Sinus rhythm...normal P axis, V-rate 60- 99 Non-specific intraventicular conduction delay
[2024-06-04 03:36] LABS: Abs Immature Grans 0.02 10^3/uL (0.0-0.06); Absolute Basophil Count 0.04 10^3/uL (0.0-0.2); Absolute Lymphocyte Count 1.28 10^3/uL (1.2-3.4); Absolute Monocyte Count 1.05 10^3/uL (0.1-0.8); Absolute Neutrophil Count 7.13 10^3/uL (1.2-6.7); Basophils % 0.4 %; HCT 41.3 % (40.0-50.0); HGB 14.3 g/dL (13.5-17.5); Immature Grans % 0.2 %; Lymphocytes % 13.3 %; MCHC 34.6 % (32.0-36.0); MCV 89 fL (80-95); MPV 10.5 fL (8.0-11.0); Monocytes % 10.9 %; Neutrophils % 74.2 %; Platelet Count 248 10^3/uL (130-400); RBC 4.62 10^6/uL (4.36-5.78); RDW 12.4 % (11.8-14.1); RDW-SD 39.8 fL; WBC 9.62 10^3/uL (4.4-10.8)
[2024-06-04 03:50] LABS: INR 1.1 (0.9-1.1); PTT Activated 29.5 sec (20.6-30.2)
[2024-06-04 04:00] LABS: ALT 22 U/L (16-63); AST 16 U/L (15-37); Albumin 3.8 g/dL (3.4-5.0); Alkaline Phosphatase 66 U/L (46-116); Anion Gap 6.1 mmol/L (3-11); BUN 20 mg/dL (7-18); Bilirubin, Total 0.45 mg/dL (0.2-1.0); CO2 27.9 mmol/L (21.0-32.0); Chloride 104 mmol/L (98-107); Estimated GFR 105.14 (mL/min/1.73m2); Glucose 120 mg/dL (74-106); Lipase 33 U/L (<78); Sodium 138 mmol/L (136-145); Total Protein 7.4 g/dL (6.4-8.2)
[2024-06-04 04:11] LABS: ETHANOL BLOOD < 3.0 mg/dL (<10)
[2024-06-04] MEDS: ACETAMINOPHEN 1,000 MG/100 ML BAG 400 MG IVPB (04:39)
[2024-06-04] MEDS: Ondansetron 4 MG/2 ML VIAL IVP (04:39)
[2024-06-04] MEDS: Pantoprazole 40 MG VIAL IVP (04:39)
--- NOTE | 2024-06-04 05:15 | ED.GENADUL_ITS ---
Discharge Plan Disposition Patient Disposition: Home Condition: Good Discharge Details Chief Complaint: Abd Prob Clinical Impression: Autosomal dominant polycystic kidney disease Primary Care Provider: Unknown,Unknown ED Provider: Ramesh Andrade Home Meds and New Rx's Prescriptions: No Action No Known Home Meds Discharge Instructions Instructions: Polycystic kidney disease Additional Instructions: The pain and gastrointestinal symptoms that you experienced tonight were related to the rupture of a cyst in your right ovary which can cause a significant amount of pain. The pain itself is what then caused you to have the nausea and vomiting. The diarrhea was likely a sympathetic response from your GI tract to your other symptoms. You should not require any additional treatment at this time. If you have any additional ongoing pain, consider taking 2-3 3 and 25 mg acetaminophen tablets every 4-6 hours as needed. Follow-up with your regular primary care doctor at your next routine care interval. Discharge Data Discharge Physician: Ramesh Andrade [facility] General Date/Time Provider Initiated Documentation: 06/04/24 03:44 . HPI Narrative: The patient is a 28-year-old male, with no contributory past medical history, who presents the emergency department this evening complaining of right sided abdominal pain, nausea, vomiting, and some diarrhea which began yesterday in the morning. The patient tells me that he had 2 cups of coffee around 10:30 AM and began to develop right sided abdominal discomfort in the mid abdomen. Over the course the day the pain got worse and worse until ultimately he began having vomiting in the machine coremaker hours this morning shortly before coming into the emergency room. The patient states that he vomited 3 times with the last time being more coffee-ground's from above. He also felt like his stool was dark in color. The patient denies having any prior gastrointestinal bleeding in the past. The patient states that his nausea and abdominal discomfort is somewhat better since having the vomiting and diarrhea. The patient tells me that he feels cold and clammy. Related Data Home Medications ?Medication ?Instructions ?Recorded ?Confirmed Unknown [No Known Home Meds] 06/04/24 06/04/24 Allergies Allergy/AdvReac Type Severity Reaction Status Date / Time dial soap Allergy Mild Skin Rash Uncoded 06/04/24 03:21 General Stated Complaint: Abd Prob EHSAN: 3 Exam Const General: cooperative, healthy appearing and no acute distress Resp Effort & Inspection: normal respiratory effort and able to speak in complete sentences Auscultation: clear to auscultation bilaterally Cardio Rate: regular rate Rhythm: regular rhythm GI Inspection: normal to inspection and non-distended Palpation: soft and no guarding Auscultation: normoactive bowel sounds Skin General skin exam: no rashes or lesions noted Lesions: no lesions Neuro General: patient alert, patient oriented x3, moves all extremities, no focal motor deficits and CN's II-XI intact bilaterally Course Vital Signs Vital signs: Vital Signs Temperature 37.7 C H 06/04/24 03:18 Pulse 82 06/04/24 03:18 Respiratory Rate 16 06/04/24 03:18 Blood Pressure 148/87 H 06/04/24 03:18 Pulse Oximetry 97 06/04/24 03:18 Temperature 37.7 C H 06/04/24 03:18 Pulse 71 06/04/24 04:40 Pulse 71 06/04/24 04:40 Respiratory Rate 25 H 06/04/24 04:40 Blood Pressure 140/84 06/04/24 04:31 Blood Pressure Mean 102 06/04/24 04:31 Pulse Oximetry 96 06/04/24 04:40 Oxygen Delivery Method Room Air 06/04/24 03:18 Oxygen Flow Rate 0 06/04/24 03:18 Pain Level 0 06/04/24 03:18 Lab/Test Results Lab/Test Results: Laboratory Tests Range/Units 06/04/24 03:23 WBC (4.4-10.8) 10^3/uL 9.62 RBC (4.36-5.78) 10^6/uL 4.62 Hgb (13.5-17.5) g/dL 14.3 Hct (40.0-50.0) % 41.3 MCV (80-95) fL 89 MCH (27.0-33.0) pg 31.0 MCHC (32.0-36.0) % 34.6 RDW (11.8-14.1) % 12.4 Plt Count (130-400) 10^3/uL 248 MPV (8.0-11.0) fL 10.5 Immature Gran % % 0.2 Neutrophils % % 74.2 Lymphocytes % % 13.3 Monocytes % % 10.9 Eosinophils % % 1.0 Basophils % % 0.4 Nucleated RBC % (0.0-0.3) % 0.0 Absolute Neutrophils (1.2-6.7) 10^3/uL 7.13 H Absolute Lymphocytes (1.2-3.4) 10^3/uL 1.28 Absolute Monocytes (0.1-0.8) 10^3/uL 1.05 H Absolute Eosinophils (0.0-0.7) 10^3/uL 0.10 Absolute Basophils (0.0-0.2) 10^3/uL 0.04 PT (9.1-11.1) sec 11.0 INR (0.9-1.1) 1.1 APTT (20.6-30.2) sec 29.5 Sodium (136-145) mmol/L 138 Potassium (3.5-5.1) mmol/L 4.0 Chloride (98-107) mmol/L 104 Carbon Dioxide (21.0-32.0) mmol/L 27.9 Anion Gap (3-11) mmol/L 6.1 BUN (7-18) mg/dL 20 H Creatinine (0.70-1.30) mg/dL 1.0 Est GFR (CKD-EPI 2020) (mL/min/1.73m2) 105.14 Glucose (74-106) mg/dL 120 H Calcium (8.5-10.1) mg/dL 9.0 Total Bilirubin (0.2-1.0) mg/dL 0.45 AST (15-37) U/L 16 ALT (16-63) U/L 22 Alkaline Phosphatase (46-116) U/L 66 Total Protein (6.4-8.2) g/dL 7.4 Albumin (3.4-5.0) g/dL 3.8 Lipase (<78) U/L 33 Ethyl Alcohol (<10) mg/dL < 3.0 ABO/Rh O Positive Antibody Screen NEGATIVE Medical Decision Making The patient was seen and examined. He is in no distress and has normal vital signs here in the emergency room. He has a slightly increased temperature which does not rise to the threshold of a fever. The patient has normal blood counts and has not had any vomiting or diarrhea here in the emergency room. The patient does continue to report having right sided abdominal pain and he will be sent for an abdominal and pelvic CT scan to exclude appendicitis or other focal bowel pathology which might be causing his symptoms. Assuming his CT scan is normal, the patient can potentially be discharged home with some oral antiemetic medications and pain relievers if needed. This patient's symptoms could be compatible with the local endemic gastroenteritis that has been going around in the community. The patient reports feeling back to normal after medical therapy here in the emergency room. The patient CT scan was negative for any acute pathology found in his bowels. There was some inflammatory stranding around his right kidney which was thought to be secondary to the spontaneous rupture of a fluid cyst. This would likely cause the patient to have significant right sided abdominal pain and vomiting. The patient's urine was negative for any infectious or hemorrhagic signs. As the patient's symptoms have fully resolved now, he will be discharged to follow-up with routine medical care. Quality:SDOH Health Related Social Needs: No Data to Display [facility] All Active Problems (Updated 06/04/24 @ 06:43 by Ramesh Andrade MD) Pneumonia (Acute) Autosomal dominant polycystic kidney disease (Acute 06/15/14) [place] [facility] [place] [facility] [place] [facility] [place] Medical History Autosomal dominant polycystic kidney disease Social History Smoking/Tobacco Use Status: Former Tobacco Use Smoking risk assessment performed?: Yes Alcohol Intake: never Drug use: Occasionally Substance use type: marijuana Do you feel safe at home: Yes Do you feel safe in your relationship?: Yes
[2024-06-04] MEDS: Normal Saline - Diluent 50 ML VIAL IJ (05:27)
[2024-06-04] MEDS: Omnipaque 350 MG/ML 100 ML BTL 75 ML IJ (05:27)
--- NOTE | 2024-06-04 05:28 | DI.CT_ITS ---
Exam(s) CT ABDOMEN PELVIS W EXAM: CT ABDOMEN PELVIS W CLINICAL HISTORY: Right sided abdominal pain with vomiting TECHNIQUE: Imaging Protocol: Axial computed tomography images with coronal and sagittal reformatted images were created and reviewed. CONTRAST MATERIAL: Intravenous: Omnipaque 350 Contrast volume:75 mL Oral: No COMPARISON: CT ABD PELVIS WITH CONTRAST from 01/03/2008 FINDINGS: ABDOMEN: Lung Bases: There is an infiltrate seen in the right lower lobe. Liver: Normal density. There are tiny hypodensities in the liver. They are too small for further radha racterization but likely reflect small cysts. No suspicious hepatic masses are seen. Portal, Superior Mesenteric, and Splenic Veins: Unremarkable. Gallbladder and Biliary Tract: No radiodense calculus or dilation. Pancreas: Normal density, no abnormal calcifications or inflammatory process. Spleen: Normal. Adrenals: No masses seen. Kidneys: The kidneys are enlarged and polycystic. There are bilateral nonobstructing stones. No jojo picious renal masses. There is mild stranding in the perinephric soft tissues. Abdominal Aorta: Abdominal portion non-dilated. Bowel: No obstruction or bowel wall thickening. Appendix is unremarkable. The stomach is incompletely distended limiting evaluation. Peritoneal Cavity: No ascites, collection or mesenteric inflammatory response. No free air. Lymph Nodes: Within normal limits. Bones: Within normal limits for the patient's age. There is a new nonspecific sclerotic area in the L4 vertebral body which may represent a bone island. No destructive changes are seen. Soft Tissues: Unremarkable. PELVIS: Bladder: Symmetric distention, no gross wall thickening. Reproductive Organs: Unremarkable as visualized. Lymph Nodes: Within normal limits. Bones: Within normal limits for the patient's age. IMPRESSION: 1. Right lower lobe infiltrate which may represent pneumonia. 2. Mild right perinephric stranding. This may reflect cyst rupture or possible pyelonephritis. Plea se correlate clinically. RADIATION DOSE DELIVERED: 358.18mGy.cm Total DLP DATA REPOSITORY: All CT scans at this facility are submitted to the National Radiology Data Registry (NRDR) Dose Index Registry (DIR) with the [employer] (A[employer]). RADIATION OPTIMIZATION: All CT scans at this facility use at least one of these dose optimization te chniques: automated exposure control; mA and/or kV adjustment per patient size (includes targeted exa ms where dose is matched to clinical indication); or iterative reconstruction.
--- NOTE | 2024-06-04 05:34 | DI.VRAD_ITS ---
PROCEDURE INFORMATION: Exam: CT Abdomen And Pelvis With Contrast Exam date and time: 06/04/2024 5:04 AM Age: 28 years old Clinical indication: Localized; Right sided abdominal pain with vomiting TECHNIQUE: Imaging protocol: Computed tomography of the abdomen and pelvis with contrast. Radiation optimization: All CT scans at this facility use at least one of these dose optimization techniques: automated exposure control; mA and/or kV adjustment per patient size (includes targeted exams where dose is matched to clinical indication); or iterative reconstruction. Contrast material: [id number]; Contrast volume: 75 ml; Contrast route: INTRAVENOUS (IV); COMPARISON: No relevant prior studies are available for comparison. FINDINGS: Limitations: Mild motion artifact. Liver: Low attenuation lesions in the liver too small to accurately characterize on CT. These likely represent cysts related to polycystic kidney disease. Gallbladder and biliary ducts: No radiodense gallbladder calculi seen. Pancreas: No CT evidence for acute pancreatitis. Spleen: No splenomegaly. Adrenal glands: No mass. Kidneys and ureters: Innumerable bilateral renal cysts consistent with polycystic kidney disease. Small calcifications in both kidneys. Mild right perinephric stranding Stomach and bowel: Apparent gastric thickening commensurate with underdistention. No intestinal obstruction is evident. Fluid in nondilated small bowel, nonspecific. Appendix: Normal appendix. Intraperitoneal space: No free air. Vasculature: No abdominal aortic aneurysm. Lymph nodes: Nonspecific mesenteric lymph nodes. Urinary bladder: No acute findings. Reproductive: No acute findings. Bones/joints: No pertinent acute abnormality seen. Soft tissues: No pertinent acute abnormality seen. IMPRESSION: 1. Mild right perinephric stranding, suboptimally evaluated due to innumerable renal cysts. Pyelonephritis or cyst rupture cannot be excluded. Clinical correlation advised. 2. Additional findings as above. Dictated and Authenticated by: Farideh Preciado MD. Orderin Raymond Chandler MD
[2024-06-04 05:46] LABS: Bilirubin Negative (Negative); Blood Moderate (Negative); Clarity Clear (Clear); Glucose Negative (Negative); Ketones Negative (Negative); Leukocyte Esterase Negative (Negative); Nitrite Negative (Negative); Specific Gravity 1.015 (1.005-1.025); Urobilinogen 0.2 mg/dL (Up to 0.2)
[2024-06-04 05:51] LABS: Bacteria Rare HPF (Negative); C & S Indicated? No; Casts Negative LPF (Negative); Crystals Negative HPF (Negative); Epithelial Cells Negative HPF (Negative); Mucus Negative (Negative); RBC 0-2 HPF (0-2); WBC Negative HPF (0-5)
== END 2024-06-04 07:07 | disposition home or self-care (01) ==
PROVIDERS: Emergency Provider Emergency Medicine Emergency Medical Services
DX: R10.31 Right lower quadrant pain (principal); R11.10 Vomiting, unspecified; Q61.2 Polycystic kidney, adult type; Z87.891 Personal history of nicotine dependence
CPT/HCPCS: 80053; 83690; 86850; 86900; 86901; 93005; 96365; 96375; 99285; 74177; 80320; 81003; 81015; 85025; 85610; 85730; 93010; J0131; J2405; J2470; J3490

== ENCOUNTER 2025-04-11 10:59 | Emergency (ER) | payer MEDICAID, SELFPAY ==
[2025-04-11 11:11] VITALS: BP 115/81; PULSE 81; RESP 18; TEMP 37.1; O2SAT 98
--- NOTE | 2025-04-11 11:30 | DI.RAD_ITS ---
Exam(s) XR CHEST 2V PA LATERAL EXAM: XR CHEST 2V PA LATERAL CLINICAL HISTORY: worsening cough. TECHNIQUE: 2D digital imaging was performed. COMPARISON: CR XR CHEST 2V PA LATERAL from 05/28/2024 FINDINGS: 2 views: Heart size is normal. The mediastinum is not widened. Lungs are clear. No infiltrates nor pleural effusions. IMPRESSION: No acute pulmonary findings. DATA REPOSITORY: RADIATION DOSE DELIVERED:
--- NOTE | 2025-04-11 11:41 | ED.GENADUL_ITS ---
Discharge Plan Disposition Patient Disposition: Home Condition: Good Discharge Details Clinical Impression: Exposure to pertussis, URI (upper respiratory infection) Primary Care Provider: Unknown,Unknown ED Provider: Rose Juan Home Meds and New Rx's Prescriptions: New azithromycin 250 mg tablet 250 mg PO DAILY 4 Days Qty: 4 0RF Rx Instructions: start on day 2 of therapy Discharge Instructions Instructions: Pertussis, Adult (DC) Additional Instructions: Please call your primary care provider to schedule follow-up appointment in the next week or so for reassessment if you are not feeling significantly better. You are being treated with azithromycin for presumed pertussis. Testing is still pending, but since you have positive contacts at home. Please take the full course for 5 days as prescribed. There is no evidence of pneumonia on your chest x-ray. Pertussis and COVID/flu/RSV testing is still pending. I recommend that you use a cool-mist humidifier at bedside to help keep your mucous membranes moist. Stay well-hydrated, drinking plenty of fluids throughout the day. You may prop yourself up with pillows while sleeping to make it easier to breathe at night. Return to emergency care if you develop high fevers, difficulty breathing, chest pains, episodes of passing out, or if you are very worried and need to be rechecked again immediately. Stand Alone Forms: Portal Information Discharge Data Discharge Date/Time-TO BE ENTERED AT DEPARTURE: 04/11/25 13:31 HPI General Date/Time Provider Initiated Documentation: 04/11/25 11:15 . HPI Narrative: Bob is a 29-year-old male who presents to the emergency department accompanied by his and children for evaluation of worsening cough x 2 weeks. He reports that his son was recently diagnosed with COVID and his daughter diagnosed with pertussis. He reports congestion, sore throat, cough (worsened in the morning) with discomfort to his sternum with coughing. Denies fever/chills, ear pain, nausea/vomiting, abdominal pain, change in bowel or bladder function. He is up-to-date for pertussis vaccination. Denies significant past medical history other than polycystic kidney disease. Related Data Home Medications ?Medication ?Instructions ?Recorded ?Confirmed azithromycin 250 mg tablet 250 mg PO DAILY 4 days #4 t abs 04/11/25 Previous Rx's ?Medication ?Instructions ?Recorded azithromycin 250 mg tablet 250 mg PO DAILY 4 days #4 t abs 04/11/25 Allergies Allergy/AdvReac Type Severity Reaction Status Date / Time dial soap Allergy Mild Skin Rash Uncoded 04/11/25 11:15 General Stated Complaint: RespSymp EHSAN: 4 Exam Const General: cooperative, healthy appearing, comfortable, no acute distress and well developed Nutritional Appearance: average body habitus Orientation: alert and oriented x3 HENMT Head: normal to inspection Ears: hearing grossly normal bilaterally Face and sinus: normal facial exam Mouth: oral mucosae normal Throat: posterior oropharynx normal Resp Effort & Inspection: normal respiratory effort and able to speak in complete sentences Auscultation: clear to auscultation bilaterally Cardio Rate: regular rate Rhythm: regular rhythm Skin General skin exam: no rashes or lesions noted Trauma: no lacerations or abrasions Course Vital Signs Vital signs: Vital Signs Temperature 37.1 C 04/11/25 11:11 Pulse 81 04/11/25 11:11 Respiratory Rate 18 04/11/25 11:11 Blood Pressure 115/81 04/11/25 11:11 Pulse Oximetry 98 04/11/25 11:11 Temperature 37.1 C 04/11/25 11:11 Temperature Source Oral 04/11/25 11:11 Pulse 81 04/11/25 11:11 Respiratory Rate 18 04/11/25 11:11 Blood Pressure 115/81 04/11/25 11:11 Blood Pressure Position Standing 04/11/25 11:11 Pulse Oximetry 98 04/11/25 11:11 Oxygen Delivery Method Room Air 04/11/25 11:11 Oxygen Flow Rate 0 04/11/25 11:11 Medical Decision Making Bob is a 29-year-old male who presents to the emergency department accompanied by his and children for evaluation of worsening cough x 2 weeks. He reports that his son was recently diagnosed with COVID and his daughter diagnosed with pertussis. He reports congestion, sore throat, cough (worsened in the morning) with discomfort to his sternum with coughing. Denies fever/chills, ear pain, nausea/vomiting, abdominal pain, change in bowel or bladder function. He is up-to-date for pertussis vaccination. Denies significant past medical history other than polycystic kidney disease. Physical exam reassuring. Patient alert and oriented, no acute distress. He has easy work of breathing, lung sounds clear bilaterally. No cough during exam. Normal heart sounds. Moist mucous membranes. DDx includes was not limited to: Pertussis, COVID-19, flu, pneumonia. No red flags concerning for serious systemic illness or dehydration. Patient does not meet SIRS criteria. I independently interpreted the following tests: COVID/flu/RSV negative. No acute abnormalities noted on chest x-ray. Patient empirically treated with azithromycin for pertussis based on exposure and consistent symptoms. Reviewed discharge instructions with patient, including symptomatic management and red flags indicating return to emergency care. Imaging Data Radiologic Study: Radiologist's impression: Exam(s) XR CHEST 2V PA LATERAL EXAM: XR CHEST 2V PA LATERAL CLINICAL HISTORY: worsening cough. TECHNIQUE: 2D digital imaging was performed. COMPARISON: CR XR CHEST 2V PA LATERAL from 05/28/2024 FINDINGS: 2 views: Heart size is normal. The mediastinum is not widened. Lungs are clear. No infiltrates nor pleural effusions. IMPRESSION: No acute pulmonary findings. PFSH All Active Problems (Updated 04/11/25 @ 12:45 by Rose Pinon) URI (upper respiratory infection) (Acute) Exposure to pertussis (Acute) BP (high blood pressure) (Chronic) Autosomal dominant polycystic kidney disease (Acute 06/15/14) SEEN BY [facility] [place] [facility] - IN 1 YEAR Medical History Autosomal dominant polycystic kidney disease Social History (Updated 02/15/25 @ 11:54 by Nadine Lynn MA) Smoking/Tobacco Use Status: Former Tobacco Use Smoking risk assessment performed?: Yes Alcohol Intake: never Drug use: Occasionally Substance use type: marijuana Adopted: No Caregiver/Support person: No Household members: significant other and children Housing: other Details: Mother Communication Needs: None Education Level: high school Do you need help understanding health information?: Rarely current occupation: [employer] Sexually active: Yes Do you think of yourself as: straight/heterosexual Current gender identity: male What is your relationship status?: never How often do you talk on the phone with friends or family?: once per week How often do you get together with friends or relatives?: three or more times per week How often do you attend denominational or sikhism services?: decline to answer Do you belong to any clubs or organized social groups?: no Panel score (0-1 are the most socially isolated patients): 1 Vivienne/Latter Day: Caodaism Special vivienne needs: Yes Agree to transfusion: Yes Seatbelt use: always Helmet use: No Drive intox or ride w/intox petroleum transport driver: No Working smoke detector in home: Yes Carbon monox detector in home: Yes Firearms in home: No Do you feel safe at home: Yes Do you feel safe in your relationship?: Yes Victim of physical abuse: No Victim of emotional abuse: No Victim of sexual abuse: No Would you like helpful sources: No
[2025-04-11] MEDS: Azithromycin 250 MG TAB 500 MG PO (12:09)
[2025-04-11 12:58] LABS: COVID-19 PCR Negative (Negative); RSV PCR Negative (Negative)
--- NOTE | 2025-04-11 13:13 | DI.VRAD_ITS ---
PROCEDURE INFORMATION: Exam: XR Chest Exam date and time: 04/11/2025 12:25 PM Age: 29 years old Clinical indication: Cough TECHNIQUE: Imaging protocol: Radiologic exam of the chest. Views: 2 views. COMPARISON: CR XR CHEST 2V PA LATERAL 05/28/2024 6:23 PM FINDINGS: Lungs: Unremarkable. No consolidation. Pleural spaces: Unremarkable. No pleural effusion. No pneumothorax. Heart/Mediastinum: Unremarkable. No cardiomegaly. Bones/joints: Unremarkable. IMPRESSION: No acute findings. Dictated and Authenticated by: Santo Dowell MD. Orderin Jozef Rose MD
[2025-04-11 13:27] VITALS: BP 115/81; BP 146/109; PULSE 68; PULSE 81; RESP 16; RESP 18; TEMP 37.1; O2SAT 100; O2SAT 98
[2025-04-19 08:39] LABS: B.holmesii DNA Not Detected (NotDetected)
== END 2025-04-11 13:31 | disposition home or self-care (01) ==
PROVIDERS: Emergency Provider Nurse Practitioner Family
DX: J06.9 Acute upper respiratory infection, unspecified (principal); Z20.818 Contact with and (suspected) exposure to other bacterial communicable diseases
CPT/HCPCS: 99284; 99283; 87637; 87798; 71046

== ENCOUNTER 2025-04-17 14:40 | Emergency (ER) | payer MEDICAID, SELFPAY ==
[2025-04-17 14:43] VITALS: BP 130/89; PULSE 95; RESP 16; TEMP 36.9; O2SAT 95
[2025-04-17 14:51] VITALS: BP 130/89; PULSE 95; RESP 16; TEMP 36.9; O2SAT 95
--- NOTE | 2025-04-17 15:00 | DI.RAD_ITS ---
Exam(s) XR FEMUR RT EXAM: XR FEMUR RT CLINICAL HISTORY: eval foreign body medial distal thigh. TECHNIQUE: 2D digital imaging was performed. AP and lateral views. COMPARISON: No exams were available for comparison FINDINGS: BONES: No acute fracture is present. No bony destructive lesion is seen. JOINTS: Visualized portion of knee and hip joints are unremarkable. SOFT TISSUE: Normal. No evidence of foreign body. No abnormal gas collection. IMPRESSION: Unremarkable radiographs of the right femur. The preliminary [facility] report was reviewed. DATA REPOSITORY: RADIATION DOSE DELIVERED:
--- NOTE | 2025-04-17 15:01 | W.ED.GENAD ---
Discharge Plan Disposition Patient Disposition: Home Condition: Stable Discharge Details Clinical Impression: Cellulitis of right thigh Primary Care Provider: Unknown,Unknown ED Provider: Eva Rogers Home Meds and New Rx's Prescriptions: New sulfamethoxazole-trimethoprim [Bactrim DS] 800-160 mg tablet 1 tab PO BID 10 Days Qty: 20 0RF cephalexin 500 mg capsule 500 mg PO QID 10 Days Qty: 40 0RF Discharge Instructions Instructions: Cellulitis (Skin Infection), Adult ED Additional Instructions: You were seen in the emergency department today for evaluation of a skin infection on your right thigh. In our department you do full physical examination performed, and your ultrasound shows that the infection has spread throughout the soft tissues, there is no abscess or fluid collection that requires drainage at this time. An x-ray that did not show any evidence of foreign body or metal in the area. As we discussed, we need to start an antibiotic to ensure that his infection is treated appropriately. You will be taking 2 medications, both of which were sent to your pharmacy. Please take all of this medication until it is gone, even if you start to feel better. I do recommend that you eat a daily yogurt or probiotic to prevent GI upset and diarrhea while taking antibiotics. Please use therapeutic dosing of Tylenol (acetaminophen) & Advil (ibuprofen) in an alternating fashion as follows: Take 1000mg of Tylenol every 6 hours without missing doses- that is 4 times per day. [place] in between the Tylenol doses, take 600mg of Advil also on a 6 hour schedule, that is also 4 times per day. With this strategy, you will be taking something for fever/pain as often as every 3 hours. The daily maximum dosing of Tylenol is 4000mg, and the daily maximum dosing of Advil is 2400mg. Please note that some common cold medications & prescription pain medications may contain acetaminophen and you need to read OTC drug labels and factor that in to maximum daily doses. I have placed a referral for you to establish with a primary care provider, please contact their office to schedule follow-up appointment. I expect that the redness, swelling, and warmth should start to get better after 48 hours of taking antibiotics. You should continue to do warm soaks and you should keep the area covered with a bandage and can use a topical antibiotic ointment such as Neosporin or bacitracin. Please follow-up with your primary care provider in the next few days to discuss this visit and any symptoms that change, worsen, or persist. Thank you for allowing us to be part of your care. Stand Alone Forms: Portal Information HPI General Mode of arrival: ambulatory. Date/Time Provider Initiated Documentation: 04/17/25 14:42. Limitations to Documentation: no limitations. Information obtained by: patient and old records reviewed. HPI Narrative: This is a 29-year-old male patient presenting for evaluation of an abscess on his right lower extremity. The patient reports that earlier in the week he started to notice some pain, redness, and swelling in that area, states he has not been using anything other than marijuana for pain management, attempted to gilberto it himself 2 times without expression of any significant purulent material. Today in the shower he noticed that it seemed more reddish and purpleish than typical and this prompted him to seek care. The patient reports he has otherwise been in his normal state of health, has recovered from a recent upper respiratory infection, did take azithromycin recently for a pertussis exposure. Has not had fevers or chills, no numbness, weakness, or tingling distal to this injury, this is an isolated complaint and he has no other concerns at this time. Related Data Home Medications ?Medication ?Instructions ?Recorded ?Confirmed cephalexin 500 mg capsule 500 mg PO QID 10 days #40 caps 04/17/25 sulfamethoxazole 800 1 tab PO BID 10 days #20 tabs 04/17/25 mg-trimethoprim 160 mg tablet (Bactrim DS) Previous Rx's ?Medication ?Instructions ?Recorded cephalexin 500 mg capsule 500 mg PO QID 10 days #40 caps 04/17/25 sulfamethoxazole 800 1 tab PO BID 10 days #20 tabs 04/17/25 mg-trimethoprim 160 mg tablet (Bactrim DS) Allergies Allergy/AdvReac Type Severity Reaction Status Date / Time ibuprofen AdvReac Unknown Other (See Verified 04/17/25 14:46 Comment) dial soap Allergy Mild Skin Rash Uncoded 04/17/25 14:46 General Stated Complaint: Cellulitis EHSAN: 3 Exam Narrative Exam Narrative: Gen: Awake and alert, in no apparent distress HEENT: Non-icteric sclera Neck: Supple Lungs: No apparent respiratory distress, normal respiratory effort. CV: Appears well perfused Abdomen: Non-distended MSK: Moves 4 extremities without apparent limitation in ROM. The distal and medial aspect of the right thigh has an approximately 8 cm area of redness, induration, swelling, and warmth, without palpable fluctuance. There is an area of scabbed skin consistent with the patient's attempt at incision and drainage. CSM's intact and symmetrical distal to this injury. Skin: Visualized skin without rashes, cyanosis. Neuro: Normal Gait, no obvious focal deficits or facial asymmetry. Speaks in full, clear sentences. Psych: Appropriate for situation. Course Vital Signs Vital signs: Vital Signs Temperature 36.9 C 04/17/25 14:43 Pulse 95 H 04/17/25 14:43 Respiratory Rate 16 04/17/25 14:43 Blood Pressure 130/89 04/17/25 14:43 Pulse Oximetry 95 04/17/25 14:43 Temperature 36.9 C 04/17/25 14:51 Temperature Source Oral 04/17/25 14:51 Pulse 95 H 04/17/25 14:51 Respiratory Rate 16 04/17/25 14:51 Blood Pressure 130/89 04/17/25 14:51 Pulse Oximetry 95 04/17/25 14:51 Oxygen Delivery Method Room Air 04/17/25 14:51 Oxygen Flow Rate 0 04/17/25 14:51 Procedure Abscess Drainage Provider that performed the procedure: Eva Rogers Medical Decision Making This is a 29-year-old male patient presenting for evaluation of a leg infection. 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 Reassuringly, the patient is without fever, significant tachycardia, or systemic illness to suggest sepsis or bacteremia. I performed a bedside ultrasound, and noted cobblestoning, but no significant fluid collections which would be amenable to bedside incision and drainage. Given the foreign body potential we will obtain x-ray, and plan to treat this patient with antibiotics including cephalexin and Bactrim. At this time, given the patient's hemodynamic stability, I feel that blood work is not medically indicated at this time. We did chase the area to ensure that the patient will be able to monitor for worsening after initiation of antibiosis. A referral to establish with an outpatient PCP was placed. - I independently reviewed the x-ray, there is no evidence for radiopaque foreign body, prescriptions for Keflex and Bactrim were sent to the pharmacy and the patient was counseled on conservative pain management as well as warm soaks and topical wound care. At this time, the patient has had a full medical evaluation and is safe for discharge to home. They are hemodynamically stable, ambulatory, and tolerating PO. They are understanding of the follow-up plan and return precautions. They left our facility without incident. Eva Rogers MD [facility] All Active Problems (Updated 04/17/25 @ 15:14 by Eva Rogers MD) Cellulitis of right thigh (Acute) URI (upper respiratory infection) (Acute) Exposure to pertussis (Acute) BP (high blood pressure) (Chronic) Autosomal dominant polycystic kidney disease (Acute 06/15/14) SEEN BY [facility] [place] [facility] IN 1 YEAR Medical History Autosomal dominant polycystic kidney disease Social History (Updated 02/15/25 @ 11:54 by Nadine Lynn MA) Smoking/Tobacco Use Status: Former Tobacco Use Smoking risk assessment performed?: Yes Alcohol Intake: never Drug use: Occasionally Substance use type: marijuana Adopted: No Caregiver/Support person: No Household members: significant other and children Housing: other Details: Mother Communication Needs: None Education Level: high school Do you need help understanding health information?: Rarely current occupation: [employer] Sexually active: Yes Do you think of yourself as: straight/heterosexual Current gender identity: male What is your relationship status?: never How often do you talk on the phone with friends or family?: once per week How often do you get together with friends or relatives?: three or more times per week How often do you attend confucianist or nondenominational services?: decline to answer Do you belong to any clubs or organized social groups?: no Panel score (0-1 are the most socially isolated patients): 1 Vivienne/Denominational: Anglican Special vivienne needs: Yes Agree to transfusion: Yes Seatbelt use: always Helmet use: No Drive intox or ride w/intox funeral car driver: No Working smoke detector in home: Yes Carbon monox detector in home: Yes Firearms in home: No Do you feel safe at home: Yes Do you feel safe in your relationship?: Yes Victim of physical abuse: No Victim of emotional abuse: No Victim of sexual abuse: No Would you like helpful sources: No POCUS Exam (ED) Limited Soft Tissue Exam DATE OF EXAM: 04/17/25 TIME OF EXAM: 15:00 PROVIDER THAT PERFORMED THE STUDY: Eva Rogers LOCATION OF EXAM: Lower extremity/right (medial distal thigh) REASON FOR EXAM: Pain, Redness and Swelling VISUALIZED STRUCTURES: Fascia, Muscle, Skin and Subcutaneous tissue PERTINENT FINDINGS/IMPRESSION: Cellulitis right medial thigh and Cobblestoning right medial thigh . Exam Complete INCIDENTAL FINDINGS: Cobblestoning without large discrete fluid collection identified, no subcutaneous gas visualized, incidental note is made of a blood vessel in the region of the patient's swelling. Ultrasound concerning for cellulitis
[2025-04-17] MEDS: Cephalexin 500 MG CAP, 4 CAPS/BTL PO (15:04)
[2025-04-17] MEDS: Sulfameth/Trimeth DS, 2 TABS/BTL 1 TAB PO (15:05)
--- NOTE | 2025-04-17 15:20 | DI.VRAD_ITS ---
PROCEDURE INFORMATION: Exam: XR Right Femur Exam date and time: 04/17/2025 3:10 PM Age: 29 years old Clinical indication: Screening exam; Eval foreign body medial distal thigh TECHNIQUE: Imaging protocol: Radiologic exam of the right femur. Views: 2 views. COMPARISON: CT ABDOMEN PELVIS W 06/04/2024 5:04 AM FINDINGS: Bones/joints: Unremarkable. No acute fracture. Soft tissues: Unremarkable. No evidence for radiopaque foreign body. IMPRESSION: No evidence for radiopaque foreign body. No acute bony abnormality. Dictated and Authenticated by: Anne Rico MD. Orderin [facility] David Velasquez MD
== END 2025-04-17 15:26 | disposition home or self-care (01) ==
LOC: ER 15:34
PROVIDERS: Emergency Provider Emergency Medicine
DX: L03.115 Cellulitis of right lower limb (principal)
CPT/HCPCS: 99284 ×2; 73552; 76882